=== PATIENT | male | born 1945 | race Caucasian/White ===

== ENCOUNTER 2019-04-25 17:30 | Inpatient (IN) ==
--- NOTE | 2019-04-25 19:51 | Emergency Department Note ---
Disposition Clinical Impression: Generalized weakness, Frequent falls Disposition: Admitted As Inpatient Condition: Good Time of Disposition: 21:50 General Adult HPI - General Chief complaint: ED Fall Stated complaint: falls x3 since Thursday Time Seen by Provider: 04/25/19 17:55 Source: patient, family (), EMS Mode of arrival: EMS Limitations: no limitations Nursing Notes Reviewed: Yes Vital Signs Reviewed: Yes - History of Present Illness HPI Narrative: 74-year-old male history of ankylosing spondylosis, recent CVA, liver cirrhosis presents emergency department via EMS for frequent falls. His is at bedside to provide additional history. Since Thursday approximately 2 days ago patient has fallen 3 times. He has been gradually more weak even when using his walker. Most recently he fell falling backwards striking the back of his head with abrasion. No report of loss of consciousness. This occurred today. They attempted to be evaluated at the [facility] but was told to come here for further evaluation. Symptoms have gotten worse in terms of his hemorrhagic stroke in September. He was transferred to [facility] for further treatment. The patient reports improvement of his strength when he has therapy but they have not had any since. The reports in the past when he has fallen they have noticed he has had increase in swelling of his legs. He was recently diagnosed and treated for cellulitis of his feet. No history of cardiac ischemic disease or heart f ailure. He denies any other complaints such as chest pain, shortness of breath, fever, nausea or vomiting. The reports he has had a productive cough and congestion as well as change in urine without odor. She reportedly has a history of urinary tract infections. He does not take any anticoagulants. Pain Scale: 0 - Related Data Home Medications Medication Instructions Recorded Confirmed Calcium Carbonate 650 mg PO DAILY 07/28/16 04/25/19 DiphenhydraMINE [Benadryl] 2 cap PO HS 07/28/16 04/25/19 Ergocalciferol (VITAMIN D2) 3 tab PO DAILY 07/28/16 04/25/19 [Vitamin D] Omeprazole [PriLOSEC] 20 mg PO DAILY 07/28/16 04/25/19 Oxycodone HCl 5 g PO QID PRN 07/28/16 05/19/17 Polyethylene Glycol 3350 [MiraLAX] 17 gm PO DAILY 07/28/16 04/21/17 Cyclobenzaprine HCl 10 mg PO DAILY 04/21/17 04/25/19 FentaNYL PATCH [Duragesic] 12 mcg TD Q48H 04/21/17 04/25/19 amLODIPine [Norvasc] 5 mg PO DAILY 04/21/17 04/25/19 Amlodipine Besylate 5 mg PO DAILY 04/25/19 04/25/19 Allergies Allergy/AdvReac Type Severity Reaction Status Date / Time diazepam [From Valium] Allergy Unknown Unknown Verified 04/25/19 22:38 latex Allergy Unknown Unknown Verified 04/25/19 22:38 methadone [Methadone] Allergy Unknown Unknown Verified 04/25/19 22:38 morphine Allergy Unknown Itching Verified 04/25/19 22:38 All systems ED: reviewed and negative except as stated. Review of Systems: As Per HPI Constitutional: Reports: weakness. Denies: fever, chills ENT ED: Reports: congestion Cardiovascular: Denies: chest pain Respiratory: Reports: cough. Denies: dyspnea Gastrointestinal: Denies: abdominal pain, nausea, vomiting Genitourinary: Denies: urgency, dysuria, frequency Musculoskeletal: Reports: back pain (Chronic), neck pain Integumentary: Denies: rash, abrasion Neurological: Reports: headache, weakness. Denies: numbness, confusion Past Medical History - Past Medical History Attestation: Yes The following information was validated with the patient. Source: patient Medical history: Reports: cirrhosis, dementia, GERD Psychiatric history: Reports: no psych history - Social History Smoking Status: Unknown if ever smoked Smokeless Tobacco Status: No Alcohol use: Reports: heavy Drug use: Reports: none Physical Exam - General Limitations: no limitations General appearance: alert, in no apparent distress - Head Head exam: other (Abrasion to the crown of the head) - Eye Eye exam: Present: normal appearance, PERRL, EOMI - ENT ENT exam: normal exam, normal oropharynx, mucous membranes moist - Neck Neck exam: Present: normal inspection, trachea midline, other (Stiffness to the neck with limited range of motion). Absent: tenderness, meningismus - Chest Chest inspection: Present: normal inspection, symmetric chest wall rise. Absent: tenderness - Respiratory Respiratory exam: Present: normal lung sounds bilaterally. Absent: respiratory distress, wheezes - Cardiovascular Cardiovascular exam: Present: regular rate, normal rhythm, normal heart sounds. Absent: systolic murmur - Abdominal Exam Abdominal exam: Present: soft, Non-Tender, normal bowel sounds. Absent: tenderness, distention, guarding, rebound, rigidity - Extremities Exam Extremities exam: Present: normal inspection, full ROM, pedal edema (+2 bilateral). Absent: tenderness - Expanded Upper Extremity Exam Shoulder exam: Present: normal inspection, full ROM Arm exam: Present: normal inspection, full ROM Elbow exam: Present: normal inspection, full ROM Forearm/Wrist exam: Present: normal inspection, full ROM Hand exam: Present: normal inspection, full ROM Vascular exam: Normal: capillary refill, radial pulse - Expanded Lower Extremity Exam Hip/Pelvis exam: Present: normal inspection, full ROM, pelvis stable. Absent: shortening Upper leg exam: Present: normal inspection, full ROM Knee exam: Present: normal inspection, full ROM Lower leg exam: Present: normal inspection, full ROM Ankle exam: Present: normal inspection, full ROM Foot/toe exam: Present: normal inspection, full ROM Neurovascular/Tendon exam: Absent: motor deficit, sensory deficit, tendon deficit - Back Exam Back exam: Present: other (No back tenderness, loss of normal curvature of the back) - Neurological Exam Neurological exam: Present: alert, oriented X3 - Psychiatric Psychiatric exam: Present: normal affect, normal mood - Skin Skin exam: Present: warm, dry, intact, normal color. Absent: rash, cyanosis, diaphoresis Course Course Narrative: Patient presents with reports of more frequent falls over the past 3 days. He has had a increased in frequency after his stroke. He has generalized weakness that has progressively worse. No sick contacts or fevers. No complaints at this time other than a slight headache. He has a contusion abrasion to the back of his head. No neck tenderness but he has stiffness which is his baseline. He moves all for extremities without difficulty. There is some slight pitting edema. At this time basic labs including a CT scan of the head and neck. reports change in urinating concern for urinary tract infections. Urinalysis will be performed. Given the patient's history of frequent falls in difficulty and caring for him at home patient may require inpatient admission for possible rehab placement. - Reevaluation(s) Reevaluation #1: Review of his labs shows leukopenia and stable chronic anemia. No other signif icant lab abnormalities. Troponin less than 0.03. Chest x-ray and images unremarkable for any acute abnormalities such as stroke. Urinalysis is not consistent with infection. Patient continues to be too weak to get up and ambulate. Will plan for admission for his generalized weakness and frequent falls. Family is in agreement with this plan. We discussed code status and he is full code at this time. - Consultations Consultation #1: Spoke with on-call hospitalist Dr. Nguyễn, diandra to admit for generalized weakness and frequent falls. No further orders at this time Time: 21:44 Vital Signs Temperature 98.2 F 04/25/19 17:32 Pulse Rate 58 04/25/19 17:32 Respiratory Rate 13 04/25/19 17:32 Blood Pressure 160/71 04/25/19 17:32 O2 Sat by Pulse Oximetry 97 04/25/19 17:32 Temperature 98.2 F 04/25/19 17:32 Pulse Rate 58 04/25/19 17:32 Respiratory Rate 13 04/25/19 17:32 Blood Pressure 160/71 04/25/19 17:32 O2 Sat by Pulse Oximetry 97 04/25/19 17:32 Oxygen Delivery Oxygen Delivery Room Air Medical Decision Making - MDM Narrative Medical decision making narrative: Patient was discussed with my attending physician who agrees with ED management and final disposition. They independently evaluated the patient. Please refer to their attestation to this encounter for additional information. This note was generated by [email or web address] voice recognition software and as a result grammatical or spelling errors may occur using this program. - Medical Records Medical records reviewed: Yes I reviewed the patient's medical records. - Lab Data Lab results reviewed: Yes I reviewed the patient's lab results. Result diagrams: 04/26/19 04:17 04/26/19 04:17 Lab Results 04/25/19 04/25/19 04/25/19 Range/Units 19:49 20:03 20:03 WBC 2.3 L (4.3-11.1) K/mcL RBC 3.79 L (4.19-5.50) M/mcL Hgb 12.7 L (12.9-16.9) g/dL Hct 36.5 L (37.5-50.1) % MCV 96.3 (83.0-100.0) fL MCH 33.5 H (28.0-33.3) pg MCHC 34.8 (31.6-35.5) g/dL RDW 13.3 (11.5-14.5) % Plt Count 64 L (140-400) K/mcL MPV 10.2 (9.4-12.4) fL Immature Gran % 0.0 (0-4) % Seg Neutrophils % 61.6 % Lymphocytes % 30.0 % Monocytes % 6.2 % Eosinophils % 1.8 % Basophils % 0.4 % Neutrophils # 1.4 L (1.6-8.9) K/mcL Lymphocytes # 0.7 (0.6-4.6) K/mcL Monocytes # 0.1 (0.0-1.3) K/mcL Eosinophils # 0.0 (0.0-0.6) K/mcL Basophils # 0.0 (0.0-0.2) K/mcL Sodium 140 (136-145) mEq/L Potassium 3.6 (3.5-5.1) mEq/L Chloride 108 H (98-107) mEq/L Carbon Dioxide 26 (23-29) mEq/L BUN 8 (8-23) mg/dL Creatinine 0.66 L (0.70-1.30) mg/dL Est GFR ( Amer) > 60 (> 60) Est GFR (Non-Af Amer) > 60 (> 60) BUN/Creatinine Ratio 12 (6-26) Glucose 75 (70-105) mg/dL Calculated Osmolality 287 (280-300) Calcium 8.6 (8.6-10.3) mg/dL Troponin I < 0.03 (< 0.04) ng/mL Urine Color Dark Yellow (Yellow) Urine Clarity Clear (Clear) Urine pH 7.5 (5.0-8.0) pH Units Ur Specific [place] 1.019 (1.010-1.025) Urine Protein Negative (Neg-Trace) mg/dL Urine Glucose (UA) Normal (Normal) mg/dL Urine Ketones Negative (Negative) mg/dL Urine Blood Negative (Negative) Urine Nitrite Negative (Negative) Urine Bilirubin Small H (Negative) Urine Urobilinogen 4.0 H (Normal) mg/dL Ur Leukocyte Esterase Negative (Negative) Ur Culture Indicated? NO (NO) - Radiology Data Radiology results reviewed: Yes I reviewed the patient's radiology results. Cervical Spine CT 04/25/19 18:23 IMPRESSION: Extensive cervical fusion which causes artifact limiting evaluation. No gross evidence of acute findings. D/ / 04/25/2019 19:40:07 Juice Graff MD / [place] Interpreting Provider: Juice Graff MD Chest X-Ray 04/25/19 18:23 IMPRESSION: No acute process. D/ / Anatoliy Caraballo MD / Anatoliy Caraballo MD Interpreting Provider: Anatoliy Caraballo MD Head CT 04/25/19 18:23 IMPRESSION: No acute intracranial abnormality. D/ / Anatoliy Caraballo MD / Anatoliy Caraballo MD Interpreting Provider: Anatoliy Caraballo MD - EKG Data EKG #1 EKG attestation: Yes I reviewed and interpreted this EKG. EKG results narrative: EKG performed 1736 normal sinus rhythm 56 beats per minute, normal axis, good R wave progression, no ST elevation or depression, no delta waves, no Brugada pattern. Intervals within normal limits. Compared to prior EKG performed 07/23/2000. No acute ischemic changes. Attestation Statement - Attestation Attestation: I, Lopez Tolentino, examined this patient and my medical decision-making was reviewed with the HOME SPECIALIST/PA/Advanced Practice Nurse/Resident Physician. I agree with the documented findings, disposition and treatment plan as described except to the extent set forth below. 74-year-old male presents emergency Department with concerns of increasing weakness. Family states he has had multiple falls over the past week. Patient has a history weakness however it has worsened per the family. Patient denies chest pain, shortness of breath, palpitations, syncope. Patient is a poor historian and is unable to give adequate history regarding his case and presentation. Family reports a history of hemorrhagic CVA within the past few years. No acute neurologic deficits noted by the family. No change in diet. Laboratory evaluation shows PATSY. Patient will be admitted to the hospitalist for further care and evaluation.
[2019-04-25 20:00] LABS: Bilirubin,Urine Small (Negative); Blood,Urine Negative (Negative); Clarity,Urine Clear (Clear); Color,Urine Dark Yellow (Yellow); Glucose,Urine (UA) Normal (Normal); Ketones,Urine Negative (Negative); Leukocyte Esterase,Urine Negative (Negative); Nitrite,Urine Negative (Negative); PH,Urine 7.5 pH Units (5.0-8.0); Protein,Urine Negative (Neg-Trace); Specific Gravity,Urine 1.019 (1.010-1.025)
[2019-04-25 20:39] LABS: White Blood Count 2.3 K/mcL (4.3-11.1)
[2019-04-25 20:40] LABS: Basophils % 0.4 %; Eosinophils % 1.8 %; Hematocrit 36.5 % (37.5-50.1); Hemoglobin 12.7 g/dL (12.9-16.9); Lymphocytes # 0.7 K/mcL (0.6-4.6); Mean Corpuscular HGB Conc 34.8 g/dL (31.6-35.5); Mean Corpuscular Hemoglobin 33.5 pg (28.0-33.3); Mean Corpuscular Volume 96.3 fL (83.0-100.0); Mean Platelet Volume 10.2 fL (9.4-12.4); Monocytes # 0.1 K/mcL (0.0-1.3); Monocytes % 6.2 %; Neutrophils # 1.4 K/mcL (1.6-8.9); Red Blood Count 3.79 M/mcL (4.19-5.50); Red Cell Distribution Width 13.3 % (11.5-14.5); Segmented Neutrophils % 61.6 %
[2019-04-25 20:41] LABS: Platelet Count 64 K/mcL (140-400)
[2019-04-25 21:03] LABS: BUN/Creatinine Ratio 12 (6-26); Blood Urea Nitrogen 8 mg/dL (8-23); Calcium 8.6 mg/dL (8.6-10.3); Carbon Dioxide 26 mEq/L (23-29); Chloride 108 mEq/L (98-107); Glucose 75 mg/dL (70-105); Osmolality,Calculated 287 (280-300); Potassium 3.6 mEq/L (3.5-5.1); Sodium 140 mEq/L (136-145); Troponin I < 0.03 ng/mL (< 0.04); eGFR For African Americans > 60 (> 60); eGFR For Non-African Americans > 60 (> 60)
[2019-04-25 22:31] LABS: Albumin 3.4 g/dL (3.5-5.7); Albumin/Globulin Ratio 1.2 (1.1-2.2); Bilirubin,Direct 0.7 mg/dL (0.0-0.2); Bilirubin,Indirect 3.3 mg/dL (0.0-1.2); Globulin 2.9 g/dL (2.4-3.5); Total Protein 6.3 g/dL (6.4-8.9)
[2019-04-26] MEDS ORDERED: Naloxone 0.4 MG/ML INJ IVP PRN (02:10)
--- NOTE | 2019-04-26 02:48 | Internal Med History&Physical ---
Date of Encounter: 04/26/19 Time of Encounter: 01:00 Internal Medicine - H&P: HPI Chief complaint: Frequent Falls Admitted From: Home Plans for Post Hospital Care: Home History of present illness: Mr. Puente is a 74 year old male with past medical history significant for hypertension, hemorrhagic stroke, ankylosing spondylosis, cervical fusion, rheumatoid arthritis, dementia, and gerd who presents from home due to frequent falls. Per patients he had a hemorrhagic stroke in September 2018 and has progressive weakness, slurred speech, and frequent falls since. Reports he was seen at in [place], [place] but has not had any neurological followup. Receives majority of his care through the [facility] and they have recently been working on setting up follow up with neurology. She reports patient lives at home with her and is becoming more dependent on her for care. Patient denies any injury from his falls besides his chronic neck and back pain. Denies striking head or loosing consciousness. ER obtained CT of the head which showed no acute intracranial abnormality and CT of the cervical spine which showed extensive cervical fusion which causes artifact limiting evaluation otherwise no gross evidence of acute findings. Chest xray was also obtained which showed no acute process. ER reported EKG as sinus rhythm with no acute ishcemic changes when compared to prior EKG 07/23/2000. Patient currently denies any headache, chest pain, shortness of breath, abdominal pain, bowel or bladder changes. Patient follows regularly with [facility] for primary care, rheumatology, hematology, and liver specialist. Past Med Surg Social Fam HX - Past Medical History Medical history: cirrhosis, dementia, GERD, hypertension, RA, other Additional medical history: spinal stenosis, chronic back pain, cirrhosis, dementia, ankylosing spondylosis, hemorrhagic stroke Psychiatric history: no psych history - Past Surgical History Surgical History: cholecystectomy, orthopedic, other Additional surgical history: back surgery - Social History Smoking Status: Former smoker Smokeless Tobacco Status: No Alcohol use: none Drug use: none - Family History Mother Living Status: Hx Family GI Disorders: Yes (cirrhosis) Father Living Status: Hx Family Genitourinary Disorders: Yes (CKD) Internal Medicine - H&P: Meds Calcium Carbonate 650 mg PO DAILY 07/28/16 [History] DiphenhydraMINE [Benadryl] 2 cap PO HS 07/28/16 [History] Ergocalciferol (VITAMIN D2) [Vitamin D] 3 tab PO DAILY 07/28/16 [History] Omeprazole [PriLOSEC] 20 mg PO DAILY 07/28/16 [History] Oxycodone HCl 5 g PO QID PRN 07/28/16 [History] Polyethylene Glycol 3350 [MiraLAX] 17 gm PO DAILY 07/28/16 [History] Cyclobenzaprine HCl 10 mg PO DAILY 04/21/17 [History] FentaNYL PATCH [Duragesic] 12 mcg TD Q48H 04/21/17 [History] amLODIPine [Norvasc] 5 mg PO DAILY 04/21/17 [History] Amlodipine Besylate 5 mg PO DAILY 04/25/19 [History] Allergy/AdvReac Type Severity Reaction Status Date / Time diazepam [From Valium] Allergy Unknown Unknown Verified 04/25/19 22:38 latex Allergy Unknown Unknown Verified 04/25/19 22:38 methadone [Methadone] Allergy Unknown Unknown Verified 04/25/19 22:38 morphine Allergy Unknown Itching Verified 04/25/19 22:38 All Systems PM: A 10-system review of systems was performed and is negative for pertinent findings except as documented above in the HPI. - Constitutional Vitals: Temp Pulse Resp BP Pulse Ox 98.2 F 67 16 187/85 98 04/25/19 23:07 04/25/19 23:07 04/25/19 23:07 04/25/19 23:07 04/25/19 23:07 Exam: General: Alert and oriented to person, place, and time. reports intermittent confusion related to his dementia. Skin:Slightly jaundice, no rash, no lesions. HEENT:Pupils equal, round and reactive. Cardiovascular:Normal S1 & S2, no rubs, murmurs or gallops. No JVD. Pulse regular. Lungs:Breath sounds decreased, no wheezes or crackles. Abdomen:Soft, non-tender, no rigidity. Extremities:No deformity, no edema or tenderness, no joint swelling or clubbing. Neurological:Normal cognition and motor skills. Pulses:Carotid and radial pulses normal +2. Rest of the physical exam is non contributory. Internal Med - H&P Results - Labs CBC & Chem 7: 04/26/19 04:17 04/26/19 04:17 Labs: Short CBC 04/25/19 Range/Units 20:03 WBC 2.3 L (4.3-11.1) K/mcL Hgb 12.7 L (12.9-16.9) g/dL Hct 36.5 L (37.5-50.1) % Plt Count 64 L (140-400) K/mcL Neutrophils # 1.4 L (1.6-8.9) K/mcL BMP 04/25/19 20:03 Sodium 140 Potassium 3.6 Chloride 108 H Carbon Dioxide 26 BUN 8 Creatinine 0.66 L Glucose 75 Calcium 8.6 Cardiac Enzymes 04/25/19 Range/Units 20:03 Troponin I < 0.03 (< 0.04) ng/mL Liver Function 04/25/19 Range/Units 21:48 Total Bilirubin 4.0 H (0.3-1.0) mg/dL Direct Bilirubin 0.7 H (0.0-0.2) mg/dL AST 31 (13-39) Units/L ALT 25 (7-52) Units/L Alkaline Phosphatase 107 H (34-104) Units/L Albumin 3.4 L (3.5-5.7) g/dL Urine 04/25/19 Range/Units 19:49 Urine Color Dark Yellow (Yellow) Urine Clarity Clear (Clear) Urine pH 7.5 (5.0-8.0) pH Units Ur Specific [place] 1.019 (1.010-1.025) Urine Protein Negative (Neg-Trace) mg/dL Urine Glucose (UA) Normal (Normal) mg/dL - Impressions ITS Impressions Cervical Spine CT 04/25/19 18:23 IMPRESSION: Extensive cervical fusion which causes artifact limiting evaluation. No gross evidence of acute findings. D/ / 04/25/2019 19:40:07 Juice Graff MD / [place] Interpreting Provider: Juice Graff MD Chest X-Ray 04/25/19 18:23 IMPRESSION: No acute process. D/ / Anatoliy Caraballo MD / Anatoliy Caraballo MD Interpreting Provider: Anatoliy Caraballo MD Head CT 04/25/19 18:23 IMPRESSION: No acute intracranial abnormality. D/ / Anatoliy Caraballo MD / Anatoliy Caraballo MD Interpreting Provider: Anatoliy Caraballo MD - Assessment and Plan (1) Frequent falls Current Visit: Yes Status: Chronic Assessment and plan: Reports frequent falls since September 2018 following hemorrhagic stroke. Denies any injury. Head and neck CT without any acute abnormality. Fall precautions ordered. PT OT ordered. [facility], Neurology consult ordered for recommendations if any, will need called in a.m.. Social work consult ordered for discharge needs. (2) Generalized weakness Current Visit: Yes Status: Chronic Assessment and plan: Plan as stated above. (3) Slurred speech Current Visit: Yes Status: Chronic Assessment and plan: Reports slurred speech following hemorrhagic stroke in September 2018. Denies any previous evaluation with speech therapy. ST consult ordered. (4) Low hemoglobin Current Visit: Yes Status: Acute Assessment and plan: Slightly decreased at 12.7 Repeat labs ordered. (5) Pancytopenia Current Visit: Yes Status: Chronic Assessment and plan: Previously followed with [facility]. Repeat labs ordered. (6) Elevated bilirubin Current Visit: Yes Status: Chronic Assessment and plan: Bilirubin elevated with known history of liver cirrhosis. AST and ALT within normal limits. Repeat labs ordered including PT INR. Continue follow up with liver specialist at [facility]. (7) Ankylosing spondylitis Current Visit: Yes Status: Chronic Assessment and plan: Continue rheumatology follow up. Qualifiers: Ankylosing spondylitis location: unspecified site of spine Qualified Code(s): M45.9 - Ankylosing spondylitis of unspecified sites in spine - Time Spent With Patient Total time spent is greater than 50% in coordination of care (as documented) at patient's floor/unit and/or counseling patient:
[2019-04-26] MEDS: *HR* FentaNYL PATCH 12 MCG PATCH TD SCH (04:37)
[2019-04-26 05:25] LABS: Hemoglobin 12.2 g/dL (12.9-16.9); Immature Granulocytes % 0.4 % (0-4); Mean Corpuscular Volume 96.2 fL (83.0-100.0)
[2019-04-26 05:27] LABS: Basophils % 0.8 %; Eosinophils # 0.1 K/mcL (0.0-0.6); Eosinophils % 2.9 %; Immature Platelets 2.3 % (1.1-6.1); Lymphocytes # 0.8 K/mcL (0.6-4.6); Lymphocytes % 31.8 %; Mean Corpuscular HGB Conc 34.9 g/dL (31.6-35.5); Mean Corpuscular Hemoglobin 33.5 pg (28.0-33.3); Monocytes # 0.2 K/mcL (0.0-1.3); Neutrophils # 1.4 K/mcL (1.6-8.9); Red Blood Count 3.64 M/mcL (4.19-5.50); Segmented Neutrophils % 57.1 %; White Blood Count 2.4 K/mcL (4.3-11.1)
[2019-04-26 05:29] LABS: Platelet Count 61 K/mcL (140-400)
[2019-04-26 05:44] LABS: Alanine Aminotransferase 23 Units/L (7-52); Albumin 3.2 g/dL (3.5-5.7); Albumin/Globulin Ratio 1.1 (1.1-2.2); Alkaline Phosphatase 88 Units/L (34-104); Aspartate Amino Transferase 29 Units/L (13-39); BUN/Creatinine Ratio 10 (6-26); Bilirubin,Direct 0.6 mg/dL (0.0-0.2); Bilirubin,Indirect 3.1 mg/dL (0.0-1.2); Bilirubin,Total 3.7 mg/dL (0.3-1.0); Blood Urea Nitrogen 7 mg/dL (8-23); Calcium 8.4 mg/dL (8.6-10.3); Carbon Dioxide 26 mEq/L (23-29); Chloride 108 mEq/L (98-107); Glucose 80 mg/dL (70-105); Osmolality,Calculated 285 (280-300); Potassium 3.4 mEq/L (3.5-5.1); Sodium 139 mEq/L (136-145); Total Protein 6.2 g/dL (6.4-8.9); eGFR For African Americans > 60 (> 60); eGFR For Non-African Americans > 60 (> 60)
[2019-04-26 08:01] LABS: INR 1.3; Prothrombin Time 15.2 Seconds (9.4-12.1)
[2019-04-26] MEDS: Cholecalciferol (D-3) 1,000 UNIT TABLET PO SCH (09:08)
[2019-04-26] MEDS: amLODIPine 5 MG TABLET PO SCH (09:08)
--- NOTE | 2019-04-26 10:16 | Neurology - Consult Note ---
<Bon Yeung - Last Filed: 04/26/19 13:08> Date of Encounter: 04/26/19 Time of Encounter: 10:03 Assessment and Plan (1) History of hemorrhagic cerebrovascular accident (CVA) with residual deficit Current Visit: Yes Status: Chronic History of hemorrhagic CVA in September 2018 with residual deficits Originaly recieved PT/OT and was doing well at home, ambulating with walker Presented this admission due to worsening of pre-existing deficits resulting in frequent falls No complaint of or evidence of new focal deficits CT head/neck on admission negative for acute abnormality Labs negative for acute abnormality Physical exam demonstrating chronic slurred speech, right sensory deficit, bilateral LE motor deficit Chronic residual focal deficits with worsening bilateral LE weakness No indication of new infarct, focal deficits are unchanged Differential for LE weakness includes deconditioning, Lumbar spinal stenosis, metabolic derangement Patient does have pre-existing lumbar ankylosing spondylitis with spinal stenosis Agree with PT/OT, also ordering MRI brain and MRI lumbar spine, B12 and TSH Will continue to follow (2) Frequent falls Current Visit: Yes Status: Chronic (3) Generalized weakness Current Visit: Yes Status: Chronic (4) Ankylosing spondylitis Current Visit: Yes Status: Chronic Previous MRI lumbar spine in February 2018 demonstrating ankylosing spondylitis and stenosis, worst at L1-L2 Repeat lumbar spine MRI ordered and pending Qualifiers: Ankylosing spondylitis location: lumbar region Qualified Code(s): M45.6 - Ankylosing spondylitis lumbar region (5) Slurred speech Current Visit: Yes Status: Chronic Speech therapy consulted by hospitalist History of Present Illness Chief complaint: falls HPI: Mr. Puente is a 74 year old male with a past medical history of hypertension, cervical fusion, rheumatoid arthritis, dementia, GERD, and hemorrhagic stroke in September 2018. She was brought to the emergency department by his who complains of the patient having progressively worsening weakness, slurred s peech, falls since his stroke. Immediately after the stroke the patient had evaluation at [place] and had physical therapy but since leaving has not had any outpatient treatment. Prior to the stroke he was apparently functional and now is having multiple falls. On admission basic labs and imaging were performed. Urinalysis, labs, CT head, CT of the neck, chest x-ray were all without acute abnormality. Most of the history was obtained from the on admission. On my evaluation the was not present, and the patient had difficulty giving an accurate history. He did tell me that prior to his stroke he was functional but was not able to give me specifics. He does report that he ambulates with a walker at home and does fall but is usually able to get back up and does not seem as concerned with his functional status and claims that his is more concerned. Past Med Surg Social Fam HX - Past Medical History Medical history: cirrhosis, dementia, GERD, hypertension, RA, other Additional medical history: spinal stenosis, chronic back pain, cirrhosis, dementia, ankylosing spondylosis, hemorrhagic stroke Psychiatric history: no psych history - Past Surgical History Surgical History: cholecystectomy, orthopedic, other Additional surgical history: back surgery - Social History Smoking Status: Former smoker Smokeless Tobacco Status: No Alcohol use: none Drug use: none - Family History Mother Living Status: Hx Family GI Disorders: Yes (cirrhosis) Father Living Status: Hx Family Genitourinary Disorders: Yes (CKD) Medications and Allergies Calcium Carbonate 650 mg PO DAILY 07/28/16 [History] DiphenhydraMINE [Benadryl] 2 cap PO HS 07/28/16 [History] Ergocalciferol (VITAMIN D2) [Vitamin D] 3 tab PO DAILY 07/28/16 [History] Omeprazole [PriLOSEC] 20 mg PO DAILY 07/28/16 [History] Oxycodone HCl 5 g PO QID PRN 07/28/16 [History] Polyethylene Glycol 3350 [MiraLAX] 17 gm PO DAILY 07/28/16 [History] Cyclobenzaprine HCl 10 mg PO DAILY 04/21/17 [History] FentaNYL PATCH [Duragesic] 12 mcg TD Q48H 04/21/17 [History] amLODIPine [Norvasc] 5 mg PO DAILY 04/21/17 [History] Amlodipine Besylate 5 mg PO DAILY 04/25/19 [History] Allergy/AdvReac Type Severity Reaction Status Date / Time diazepam [From Valium] Allergy Unknown Unknown Verified 04/25/19 22:38 latex Allergy Unknown Unknown Verified 04/25/19 22:38 methadone [Methadone] Allergy Unknown Unknown Verified 04/25/19 22:38 morphine Allergy Unknown Itching Verified 04/25/19 22:38 All Systems: The remainder of the systems were reviewed and are negative Physical Examination - Vital Signs Vital Signs: Initial Vital Signs Temp Pulse Resp BP Pulse Ox 98.2 F 58 13 160/71 97 04/25/19 17:32 04/25/19 17:32 04/25/19 17:32 04/25/19 17:32 04/25/19 17:32 - Exam Exam: Patient is alert and oriented 3. Cranial nerves III through VII are intact, cranial nerves IX through XII are intact, vision and auditory senses were not quantified but are intact. Cerebellar function is intact but delayed. Upper motor strength is 4/5 in bilateral deltoids, 5/5 in bilateral biceps, 5/5 in bilateral triceps, 3/5 in bilateral iliopsoas, 5/5 in bilateral tibialis anterior. Hamstring and vastus strength was not tested as the patient is unstable to sit on the edge of the bed. Light touch sensation is intact but diminished on the right face, upper extremity, lower extremity. Light touch sensation is intact on the left face, upper extremity, lower extremity. Deep tendon reflexes are 2/4 in bilateral brachioradialis and triceps tendons. Patellar tendon and Achilles tendon deep tendon reflexes were not tested due to patient's inability to sit at the edge of the bed. - Constitutional General appearance: comfortable Results - Laboratory Findings CBC and BMP: 04/26/19 04:17 04/26/19 04:17 Abnormal lab findings: Abnormal lab results WBC 2.4 K/mcL (4.3-11.1) L 04/26/19 04:17 RBC 3.64 M/mcL (4.19-5.50) L 04/26/19 04:17 Hgb 12.2 g/dL (12.9-16.9) L 04/26/19 04:17 Hct 35.0 % (37.5-50.1) L 04/26/19 04:17 MCH 33.5 pg (28.0-33.3) H 04/26/19 04:17 Plt Count 61 K/mcL (140-400) L 04/26/19 04:17 1.4 K/mcL (1.6-8.9) L 04/26/19 04:17 PT 15.2 Seconds (9.4-12.1) H 04/26/19 07:25 Potassium 3.4 mEq/L (3.5-5.1) L 04/26/19 04:17 Chloride 108 mEq/L (98-107) H 04/26/19 04:17 BUN 7 mg/dL (8-23) L 04/26/19 04:17 0.66 mg/dL (0.70-1.30) L 04/25/19 20:03 Calcium 8.4 mg/dL (8.6-10.3) L 04/26/19 04:17 3.7 mg/dL (0.3-1.0) H 04/26/19 04:17 0.6 mg/dL (0.0-0.2) H 04/26/19 04:17 3.1 mg/dL (0.0-1.2) H 04/26/19 04:17 107 Units/L (34-104) H 04/25/19 21:48 6.2 g/dL (6.4-8.9) L 04/26/19 04:17 3.2 g/dL (3.5-5.7) L 04/26/19 04:17 Small (Negative) H 04/25/19 19:49 4.0 mg/dL (Normal) H 04/25/19 19:49 Consult Discharge Plan - Plan [facility]errals: [facility] Care Provider[facility] - <Ted Soto I - Last Filed: 04/26/19 17:03> Date of Encounter: 04/26/19 Assessment and Plan (1) History of hemorrhagic cerebrovascular accident (CVA) with residual deficit Current Visit: Yes Status: Chronic Pt was seen and examined, my medical decision was reviewed with the Resident Physician, I agree with the documented findings, disposition and treatment plan, as described except to the extent set forth below. This patient who apparently had an history of hemorrhagic stroke in the past with significant residual deficit. Admitted with frequent fall generalized weakness predominantly weakness of lower extremities On neurological examination Patient noted to have features seems to be consistent with parkinsonism, but at the same time he did have significant residual deficit from his previous stroke And on the top of that suspect significant lumbar stenosis considering weakness of his both lower extremities particularly at hip flexion and extension bilaterally. At this time I would recommend complete workup including MRI of the brain as well as the lumbar spine and also check for other metabolic abnormalities that may be causing or contributing to his symptoms. At the same time suggest low-dose of Sinemet as a trial to see if is any improvement in his stiffness and ambulation Patient would benefit from short-term rehabilitation Ted Soto MD History of Present Illness HPI: Mr. Puente is a 74 year old male All Systems: The remainder of the systems were reviewed and are negative Physical Examination - Vital Signs Vital Signs: Initial Vital Signs Temp Pulse Resp BP Pulse Ox 98.2 F 58 13 160/71 97 04/25/19 17:32 04/25/19 17:32 04/25/19 17:32 04/25/19 17:32 04/25/19 17:32 - Exam Exam: On neurological examination patient is alert awake and oriented, he did have a decreased facial expressions masked faces. Cranial nerves are intact, increased tone all over, mild cogwheeling decreased fine motor movements though strength in the upper extremities is 4/4. And lower extremities he is 3+ bilaterally at hip flexion knee extension. Se nsory examination is inconsistent decreased reflexes all over Results - Laboratory Findings CBC and BMP: 04/26/19 04:17 04/26/19 04:17 Abnormal lab findings: Abnormal lab results WBC 2.4 K/mcL (4.3-11.1) L 04/26/19 04:17 RBC 3.64 M/mcL (4.19-5.50) L 04/26/19 04:17 Hgb 12.2 g/dL (12.9-16.9) L 04/26/19 04:17 Hct 35.0 % (37.5-50.1) L 04/26/19 04:17 MCH 33.5 pg (28.0-33.3) H 04/26/19 04:17 Plt Count 61 K/mcL (140-400) L 04/26/19 04:17 1.4 K/mcL (1.6-8.9) L 04/26/19 04:17 PT 15.2 Seconds (9.4-12.1) H 04/26/19 07:25 Potassium 3.4 mEq/L (3.5-5.1) L 04/26/19 04:17 Chloride 108 mEq/L (98-107) H 04/26/19 04:17 BUN 7 mg/dL (8-23) L 04/26/19 04:17 0.66 mg/dL (0.70-1.30) L 04/25/19 20:03 Calcium 8.4 mg/dL (8.6-10.3) L 04/26/19 04:17 3.7 mg/dL (0.3-1.0) H 04/26/19 04:17 0.6 mg/dL (0.0-0.2) H 04/26/19 04:17 3.1 mg/dL (0.0-1.2) H 04/26/19 04:17 107 Units/L (34-104) H 04/25/19 21:48 6.2 g/dL (6.4-8.9) L 04/26/19 04:17 3.2 g/dL (3.5-5.7) L 04/26/19 04:17 Vitamin B12 1371 pg/mL (250-1100) H 04/26/19 12:04 Small (Negative) H 04/25/19 19:49 4.0 mg/dL (Normal) H 04/25/19 19:49
--- NOTE | 2019-04-26 13:45 | Internal Med Progress Note ---
Hospitalist Progress Note - Encounter Date of Encounter: 04/26/19 Time of Encounter: 10:45 - Subjective Interval History: Mr. Puente is a 74 year old male with past medical history significant for hypertension, hemorrhagic stroke, ankylosing spondylosis, cervical fusion, rheumatoid arthritis, dementia, and GERD who presented to [place] from home due to frequent falls / ataxic gait. He had a hemorrhagic stroke in September 2018 and has progressive weakness, slurred speech, and frequent falls since. ER obtained CT of the head which showed no acute intracranial abnormality and CT of the cervical spine which showed extensive cervical fusion which causes artifact limiting evaluation otherwise no gross evidence of acute findings. Pt was seen and examined at bedside. He is more alert, awake and O x 3. Does have some resting tremors. He denied any CP / SOB. - Exam Vitals: Temp Pulse Resp BP Pulse Ox 98.2 F 81 16 165/82 97 04/26/19 11:37 04/26/19 11:37 04/26/19 11:37 04/26/19 11:37 04/26/19 11:37 Exam: Gen: Alert, awake, Oriented to time,place and person.. Looks very weak and lethargic Chest: Diminished breath sounds B/L, No wheezing, No crackles, No rales Heart: S1S2+ RRR No murmurs Abd: Soft, NT, BS +, No organomegaly Ext: No edema, pulses are palpable, No calf tenderness Neuro : He does have some ataxic gait. Tremors ++ Skin: No rash. - Assessment and Plan (1) Frequent falls Current Visit: Yes Status: Chronic Assessment and Plan: Reports frequent falls since September 2018 following hemorrhagic stroke. Denies any injury. Head and neck CT without any acute abnormality. Cont fall precautions PT / OT eval - P May need ECF placement Ordered brain MRI to r/o any posterior circulation CVA Also his symptoms were concerning for early parkinson's disease Will talk to Neuro (2) Slurred speech Current Visit: Yes Status: Chronic Assessment and Plan: Reports slurred speech following hemorrhagic stroke in September 2018. Denies any previous evaluation with speech therapy. ST eval - P (3) Generalized weakness Current Visit: Yes Status: Acute Assessment and Plan: Concenring for parkinson's especially with his shuffle and ataxic gait Will talk to Neurology PT / OT eval (4) Elevated bilirubin Current Visit: Yes Status: Chronic Assessment and Plan: Bilirubin elevated with known history of liver cirrhosis. AST and ALT within normal limits. He does have chronically elevated LFT's (5) Ankylosing spondylitis Current Visit: Yes Status: Chronic Assessment and Plan: Continue rheumatology follow up MRI of Lumbar spine ordered (6) Pancytopenia Current Visit: Yes Status: Chronic Assessment and Plan: Due to Cirrhosis of liver f/u with Heme onc as an out pt - Time Spent with Patient Total time spent is greater than 50% in coordination of care (as documented) at patient's floor/unit and/or counseling patient: Internal Medicine: Result - Labs CBC & Chem 7: 04/26/19 04:17 04/26/19 04:17 Labs: Short CBC 04/25/19 04/26/19 Range/Units 20:03 04:17 WBC 2.3 L 2.4 L (4.3-11.1) K/mcL Hgb 12.7 L 12.2 L (12.9-16.9) g/dL Hct 36.5 L 35.0 L (37.5-50.1) % Plt Count 64 L 61 L (140-400) K/mcL Neutrophils # 1.4 L 1.4 L (1.6-8.9) K/mcL BMP 04/25/19 04/26/19 20:03 04:17 Sodium 140 139 Potassium 3.6 3.4 L Chloride 108 H 108 H Carbon Dioxide 26 26 BUN 8 7 L Creatinine 0.66 L 0.70 Glucose 75 80 Calcium 8.6 8.4 L Cardiac Enzymes 04/25/19 Range/Units 20:03 Troponin I < 0.03 (< 0.04) ng/mL Liver Function 04/25/19 04/26/19 Range/Units 21:48 04:17 Total Bilirubin 4.0 H 3.7 H (0.3-1.0) mg/dL Direct Bilirubin 0.7 H 0.6 H (0.0-0.2) mg/dL AST 31 29 (13-39) Units/L ALT 25 23 (7-52) Units/L Alkaline Phosphatase 107 H 88 (34-104) Units/L Albumin 3.4 L 3.2 L (3.5-5.7) g/dL Urine 04/25/19 Range/Units 19:49 Urine Color Dark Yellow (Yellow) Urine Clarity Clear (Clear) Urine pH 7.5 (5.0-8.0) pH Units Ur Specific [place] 1.019 (1.010-1.025) Urine Protein Negative (Neg-Trace) mg/dL Urine Glucose (UA) Normal (Normal) mg/dL - ABG Interpretation ABG results: PT/INR, D-dimer PT 15.2 Seconds (9.4-12.1) H 04/26/19 07:25 - Impressions Impressions Cervical Spine CT 04/25/19 18:23 IMPRESSION: Extensive cervical fusion which causes artifact limiting evaluation. No gross evidence of acute findings. D/ / 04/25/2019 19:40:07 Juice Graff MD / [place] Interpreting Provider: Juice Graff MD Chest X-Ray 04/25/19 18:23 IMPRESSION: No acute process. D/ / Anatoliy Caraballo MD / Anatoliy Caraballo MD Interpreting Provider: Anatoliy Caraballo MD Head CT 04/25/19 18:23 IMPRESSION: No acute intracranial abnormality. D/ / Anatoliy Caraballo MD / Anatoliy Caraballo MD Interpreting Provider: Anatoliy Caraballo MD Consult Discharge Plan - Plan [facility]errals: [facility] [Primary Care Provider] - (5) Ankylosing spondylitis Qualifiers: Ankylosing spondylitis location: lumbar region Qualified Code(s): M45.6 - Ankylosing spondylitis lumbar region
--- NOTE | 2019-04-26 13:57 | Electrocardiograph Report ---
[facility] Test Date: 2019-04-25 Pat Name: Celestine Puente Department: [id number] Room: 3B31 Gender: M Non Morse Intercept Technician: : 1945 Requested By: Bryan Gibson Order Number: [id number] Reading MD: Rod Fairbanks Measurements Intervals [place] Rate: 56 P: 55 [place]: 161 QRS: -2 QRSD: 126 T: 52 QT: 474 QTc: 458 Interpretive Statements Sinus rhythm Nonspecific intraventricular conduction delay Electronically Signed On 04-26-2019 13:56:17 EDT by Rod Fairbanks
[2019-04-26] MEDS ORDERED: *HR* Heparin 5,000 UNIT/ML VIAL SQ SCH (18:00)
[2019-04-26] MEDS: Carbidopa/Levodopa 25/100 TABLET PO SCH ×2 (18:09→22:29)
[2019-04-26] MEDS: *HR* OxyCODONE Immed Rel 15 MG TABLET PO PRN (18:09)
[2019-04-26] MEDS: Aspirin Enteric Coated 81 MG Tablet PO SCH (23:00)
[2019-04-27] MEDS: *HR* OxyCODONE Immed Rel 15 MG TABLET PO PRN ×2 (00:26→19:19)
--- NOTE | 2019-04-27 02:30 | Event Note ---
Date of Encounter: 04/26/19 Time of Encounter: 22:36 Alerted by pts. nurse JOSHUA Bennett that the pt. had been admitted for weakness, frequent falls, and slurred speech. Pt. had CVA in 2007. MRI ordered previously during the day. Pt. was seen by Dr. Soto. MRI showed acute infarct noted in the anterior left cerebellar hemisphere as well as a probable acute infarct along the posterior midline of the maria ines. There are no other areas of restricted diffusion to suggest an acute infarct. The cerebral and cerebellar parenchyma demonstrate volume loss. There are scattered and confluent areas of increased T2 signal noted supratentorially and centrally in the maria ines, compatible with moderate chronic microvascular white matter ischemic disease. There is a chronic lacunar infarct in the right centrum semiovale and bilateral thalami. Numerous scattered areas of blooming artifact are noted in the cerebral hemispheres, compatible with small microhemorrhages, usually related to underlying hypertension. NIHSS and NIHSS modified ordered. Falls precautions and up with assist ordered. Called Dr. Soto camera control operator to discuss these new findings w/recommendation for 81 mg ASA now and daily as well as Plavix 75 mg. Plavix DCd d/t microhemorrhages. Nurse informed of orders and instructed to notify me immediately of any adverse changes or new neurological deficits.
[2019-04-27 04:56] LABS: Red Cell Distribution Width 13.2 % (11.5-14.5)
[2019-04-27 04:58] LABS: Hematocrit 36.2 % (37.5-50.1); Hemoglobin 12.7 g/dL (12.9-16.9); Immature Platelets 2.5 % (1.1-6.1); Mean Corpuscular HGB Conc 35.1 g/dL (31.6-35.5); Mean Platelet Volume 9.5 fL (9.4-12.4); Red Blood Count 3.85 M/mcL (4.19-5.50); White Blood Count 3.3 K/mcL (4.3-11.1)
[2019-04-27 05:17] LABS: Alanine Aminotransferase 9 Units/L (7-52); Albumin 3.2 g/dL (3.5-5.7); Alkaline Phosphatase 106 Units/L (34-104); Aspartate Amino Transferase 27 Units/L (13-39); BUN/Creatinine Ratio 11 (6-26); Bilirubin,Total 3.7 mg/dL (0.3-1.0); Blood Urea Nitrogen 8 mg/dL (8-23); Calcium 8.6 mg/dL (8.6-10.3); Carbon Dioxide 26 mEq/L (23-29); Chloride 104 mEq/L (98-107); Globulin 3.1 g/dL (2.4-3.5); Glucose 78 mg/dL (70-105); Osmolality,Calculated 287 (280-300); Potassium 3.5 mEq/L (3.5-5.1); Sodium 140 mEq/L (136-145); Total Protein 6.3 g/dL (6.4-8.9); eGFR For African Americans > 60 (> 60); eGFR For Non-African Americans > 60 (> 60)
[2019-04-27] MEDS: Carbidopa/Levodopa 25/100 TABLET PO SCH ×3 (08:00→20:07)
[2019-04-27] MEDS: Cholecalciferol (D-3) 1,000 UNIT TABLET PO SCH (08:00)
[2019-04-27] MEDS: Aspirin Enteric Coated 81 MG Tablet PO SCH (08:00)
[2019-04-27] MEDS: amLODIPine 5 MG TABLET PO SCH (08:00)
--- NOTE | 2019-04-27 08:43 | Neurology Progress Note ---
<GamalBon Gomez - Last Filed: 04/27/19 10:16> Date of Encounter: 04/27/19 Time of Encounter: 08:43 Assessment and Plan (1) Acute ischemic stroke Current Visit: Yes Status: Acute MRI overnight demonstrated acute left anterior cerebellar infarct, unlikely responsible for worsened symptoms based on location Patient was resumed on ASA and Plavix overnight, he was not previously on statin due to cirrhosis but will be started on low dose statin per hospitalist No new symptoms or complaints overnight or this morning (2) Ankylosing spondylitis Current Visit: Yes Status: Chronic Lumbar MRI performed yesterday demonstrating multilevel central spinal canal narrowing worst at L1-L2 and L4-L5 Also demonstrated multilevel foraminal narrowing These MRI findings are very likely contributing to his bilateral lower extremity weakness and falls Give his clinical condition he is unlikely a surgical candidate Recommend physical therapy and rehabilitation Qualifiers: Ankylosing spondylitis location: lumbar region Qualified Code(s): M45.6 - Ankylosing spondylitis lumbar region (3) Parkinsonian features Current Visit: Yes Status: Acute Patient demonstrating Parkinsonian features on exam including masked facies, cogwheel rigidity, cognitive bradykinesia MRI brain demonstrating chronic ischemic changes that 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 Low dose sinemet started yesterday, recommend normal dose in 2-3 days Recommend continued Sinemet and observation for improvement in symptoms (4) History of hemorrhagic cerebrovascular accident (CVA) with residual deficit Current Visit: Yes Status: Chronic Hisotory of hemorrhagic stroke September 2018 with residual dysarthria and generalized weakness Patient presented for worsening symptoms, new ischemia found in cerebellum, unlikely related to symptoms based on location Continue medical therapy Subjective Principal diagnosis: Acute Ischemic Stroke Interval history: MRI overnight demonstrated acute left anterior cerebellar infarct. No acute change in symptoms overnight. Patient was also started on low dose Sinemet yesterday. Patient has no acute complaints this morning. Objective - Constitutional Vitals: Temp Pulse Resp BP Pulse Ox 97.9 F 65 14 145/70 97 04/27/19 07:42 04/27/19 07:42 04/27/19 07:42 04/27/19 07:42 04/27/19 07:42 General appearance: Present: A&O X 3 Exam: General Examination: *CONSTITUTIONAL: Alert and oriented x3, no acute distress *GENERAL APPEARANCE OF PATIENT appears healthy and well groomed *EYES: pupils equal, round, reactive to light and accommodation, con junctiva clear without masses or ulcerations, fundi normal. *CARDIOVASCULAR: RRR, S1, S2, no mumurs, rubs, or gallops, no peripheral edema, distal temperature normal, dorsalis pedis pulses normal. Refer to vital signs * MUSCULOSKELETAL: *GAIT AND STATION: not tested due to weakness and fall risk *ASSESSMENT OF MUSCLE STRENGTH IN THE UPPER AND LOWER EXTREMITIES: 4/5 in bilateral deltoids, 5/5 in bilateral biceps, 5/5 in bilateral triceps, 3/5 in bilateral hip flexors, 4/5 in bilateral quadriceps, 4/5 bilateral hamstrings, not able to perform plantar flexion or dorsiflexion. *MUSCLE TONE IN THE UPPER AND LOWER EXTREMITIES normal. No abnormal movements, fasciculations or atrophy identified. Neurological: *ORIENTATION to person, situation, time and place *LANGUAGE AND FUNCTION no significant aphasia, dysarthria present *ATTENTION AND CONCENTRATION are normal *FUND OF KNOWLEDGE aware of current events, past history, vocabulary *MENTAL attention span and concentration normal. *CN II visual singh normal *CN III,IV, PERRLA extraocular eye movements were full, no nystagmus and no ptosis noted. *CN V shows normal sensation and jaw opens symmetrically. *CN VII shows normal facial movement symmetrically, upper and lower bilaterally. *CN VIII shows no significant hearing loss on exam *CN IX-X palate elevated symmetrically *CN XI normal strength in the sternocleidomastoid muscles, symmetrical shoulder shrugging. *CN XII tongue protruded in the midline, with normal strength and movement. *SENSORY EXAMINATION light touch intact, diminished in left upper and l ower extremities *REFLEXES: deep tendon reflexes were normal and symmetrical , grade 2/4 diffusely *CEREBELLAR TESTING delayed finger to nose, heel/knee/bender *PAIN LEVEL 0/10 Results - Laboratory Findings CBC and BMP: 04/27/19 04:25 04/27/19 04:25 Abnormal lab findings: Abnormal lab results WBC 3.3 K/mcL (4.3-11.1) L 04/27/19 04:25 RBC 3.85 M/mcL (4.19-5.50) L 04/27/19 04:25 Hgb 12.7 g/dL (12.9-16.9) L 04/27/19 04:25 Hct 36.2 % (37.5-50.1) L 04/27/19 04:25 MCH 33.5 pg (28.0-33.3) H 04/26/19 04:17 Plt Count 64 K/mcL (140-400) L 04/27/19 04:25 1.4 K/mcL (1.6-8.9) L 04/26/19 04:17 PT 15.2 Seconds (9.4-12.1) H 04/26/19 07:25 Potassium 3.4 mEq/L (3.5-5.1) L 04/26/19 04:17 Chloride 108 mEq/L (98-107) H 04/26/19 04:17 BUN 7 mg/dL (8-23) L 04/26/19 04:17 0.66 mg/dL (0.70-1.30) L 04/25/19 20:03 Calcium 8.4 mg/dL (8.6-10.3) L 04/26/19 04:17 3.7 mg/dL (0.3-1.0) H 04/27/19 04:25 0.6 mg/dL (0.0-0.2) H 04/26/19 04:17 3.1 mg/dL (0.0-1.2) H 04/26/19 04:17 106 Units/L (34-104) H 04/27/19 04:25 6.3 g/dL (6.4-8.9) L 04/27/19 04:25 3.2 g/dL (3.5-5.7) L 04/27/19 04:25 1.0 (1.1-2.2) L 04/27/19 04:25 Vitamin B12 1371 pg/mL (250-1100) H 04/26/19 12:04 Small (Negative) H 04/25/19 19:49 4.0 mg/dL (Normal) H 04/25/19 19:49 Consult Discharge Plan - Plan [facility] - 05/05/19 2:00 pm <Ted Soto I - Last Filed: 04/27/19 16:44> Date of Encounter: 04/27/19 Assessment and Plan (1) History of hemorrhagic cerebrovascular accident (CVA) with residual deficit Current Visit: Yes Status: Chronic (2) Acute ischemic stroke Current Visit: Yes Status: Acute Pt was seen and examined, my medical decision was reviewed with the Resident Physician, I agree with the documented findings, disposition and treatment plan, as described except to the extent set forth below Initially patient is stable though he was found to have a lacunar cerebellar infarct but do not think that causing any of his symptoms especially it is in the upper part of the cerebellum and dizziness very small MRI did shows evidence of chronic microhemorrhages on gradient images would not recommend Plavix and suggest only aspirin at this time as well as statin perhaps low-dose. He was started on Sinemet and showing improvement in fine motor movements sugges vlad to increase the dose to 1 tablets 3 times a day Ted Stoo MD Objective - Constitutional Vitals: Temp Pulse Resp BP Pulse Ox 98.0 F 70 16 178/78 98 04/27/19 15:24 04/27/19 15:24 04/27/19 15:24 04/27/19 15:24 04/27/19 15:24 - Stroke Is the patient on any antithrombotics?: Yes Are there any contradictions to antithrombotics?: Yes Contraindication Antithromb by Day Two: Not Indicated - Due to Bleeding Disorder or Risk of Bleeding Results - Laboratory Findings CBC and BMP: 04/27/19 04:25 04/27/19 04:25 Abnormal lab findings: Abnormal lab results WBC 3.3 K/mcL (4.3-11.1) L 04/27/19 04:25 RBC 3.85 M/mcL (4.19-5.50) L 04/27/19 04:25 Hgb 12.7 g/dL (12.9-16.9) L 04/27/19 04:25 Hct 36.2 % (37.5-50.1) L 04/27/19 04:25 MCH 33.5 pg (28.0-33.3) H 04/26/19 04:17 Plt Count 64 K/mcL (140-400) L 04/27/19 04:25 1.4 K/mcL (1.6-8.9) L 04/26/19 04:17 PT 15.2 Seconds (9.4-12.1) H 04/26/19 07:25 Potassium 3.4 mEq/L (3.5-5.1) L 04/26/19 04:17 Chloride 108 mEq/L (98-107) H 04/26/19 04:17 BUN 7 mg/dL (8-23) L 04/26/19 04:17 0.66 mg/dL (0.70-1.30) L 04/25/19 20:03 Calcium 8.4 mg/dL (8.6-10.3) L 04/26/19 04:17 3.7 mg/dL (0.3-1.0) H 04/27/19 04:25 0.6 mg/dL (0.0-0.2) H 04/26/19 04:17 3.1 mg/dL (0.0-1.2) H 04/26/19 04:17 106 Units/L (34-104) H 04/27/19 04:25 6.3 g/dL (6.4-8.9) L 04/27/19 04:25 3.2 g/dL (3.5-5.7) L 04/27/19 04:25 1.0 (1.1-2.2) L 04/27/19 04:25 Vitamin B12 1371 pg/mL (250-1100) H 04/26/19 12:04 Small (Negative) H 04/25/19 19:49 4.0 mg/dL (Normal) H 04/25/19 19:49
--- NOTE | 2019-04-27 13:07 | Internal Med Progress Note ---
Hospitalist Progress Note - Encounter Date of Encounter: 04/27/19 Time of Encounter: 10:20 - Subjective Interval History: Mr. Puente is a 74 year old male with past medical history significant for hypertension, hemorrhagic stroke, ankylosing spondylosis, cervical fusion, rheumatoid arthritis, dementia, and GERD who presented to [place] from home due to frequent falls / ataxic gait. He had a hemorrhagic stroke in September 2018 and has progressive weakness, slurred speech, and frequent falls since. ER obtained CT of the head which showed no acute intracranial abnormality and CT of the cervical spine which showed extensive cervical fusion which causes artifact limiting evaluation otherwise no gross evidence of acute findings. Pt was seen and examined at bedside. He is more alert, awake and O x 3. He denied any CP / SOB. He did mention he felt weakness in Left side few days ago which followed by weakness in Rt UE a couple of days later. - Exam Vitals: Temp Pulse Resp BP Pulse Ox 98.0 F 72 18 169/74 96 04/27/19 10:44 04/27/19 10:44 04/27/19 10:44 04/27/19 10:44 04/27/19 10:44 Exam: Gen: Alert, awake, Oriented to time,place and person.. Looks very weak and lethargic Chest: Diminished breath sounds B/L, No wheezing, No crackles, No rales Heart: S1S2+ RRR No murmurs Abd: Soft, NT, BS +, No organomegaly Ext: No edema, pulses are palpable, No calf tenderness Neuro : He does have some ataxic gait. Tremors +. He does have b/l LE weakness with motor strength 3/5 Skin: No rash. - Assessment and Plan (1) Acute ischemic stroke Current Visit: Yes Status: Acute Assessment and Plan: His Brain MRI showed - an acute infarct in the left cerebellar hemisphere anteriorly as well as a questionable acute infarct along the left paramidline of the maria ines. He also have numerous scattered areas of blooming artifact are noted in the cerebral hemispheres, compatible with small microhemorrhages, usually related to underlying hypertension. Not a candidate for tPA due to out of time window and recent hemorrhagic stroke cont ASA 81mg Daily Will talk to neuro about adding plavix, he does have small microhemorrhages on MRI of head started on low dose Lipitro 20mg since he does have Cirrhosis of liver EKG showed NSR PT / OT eval Neuro on board cont neuro checks (2) Frequent falls Current Visit: Yes Status: Chronic Assessment and Plan: Reports frequent falls since September 2018 following hemorrhagic stroke. Head and neck CT without any acute abnormality. Cont fall precautions PT / OT eval - P May need ECF placement Also his symptoms were concerning for early parkinson's disease Will talk to Neuro (3) Slurred speech Current Visit: Yes Status: Chronic Assessment and Plan: Reports slurred speech following hemorrhagic stroke in September 2018. Denies any previous evaluation with speech therapy. ST eval (4) Generalized weakness Current Visit: Yes Status: Acute Assessment and Plan: Concerning for parkinson's especially with his shuffle and ataxic gait Will talk to Neurology PT / OT eval (5) Elevated bilirubin Current Visit: Yes Status: Chronic Assessment and Plan: Bilirubin elevated with known history of liver cirrhosis. AST and ALT within normal limits. He does have chronically elevated LFT's (6) Ankylosing spondylitis Current Visit: Yes Status: Chronic Assessment and Plan: Continue rheumatology follow up MRI of Lumbar spine showed : Multilevel central spinal canal narrowing, greatest at L1-L2, and L4-L5. (7) Pancytopenia Current Visit: Yes Status: Chronic Assessment and Plan: Due to Cirrhosis of liver f/u with Heme onc as an out pt Avoid anti coag on SCD's for DVT prophylaxis (8) Thrombocytopenia Current Visit: No Status: Chronic Assessment and Plan: Chronic, appears at baseline based on lab review but no recent labs for comparison. Denies any bleeding Continue hematology follow up on SCD's for anti coag - Time Spent with Patient Total time spent is greater than 50% in coordination of care (as documented) at patient's floor/unit and/or counseling patient: Internal Medicine: Result - Labs CBC & Chem 7: 04/27/19 04:25 04/27/19 04:25 Labs: Short CBC 04/27/19 Range/Units 04:25 WBC 3.3 L (4.3-11.1) K/mcL Hgb 12.7 L (12.9-16.9) g/dL Hct 36.2 L (37.5-50.1) % Plt Count 64 L (140-400) K/mcL BMP 04/27/19 04:25 Sodium 140 Potassium 3.5 Chloride 104 Carbon Dioxide 26 BUN 8 Creatinine 0.74 Glucose 78 Calcium 8.6 Liver Function 04/27/19 Range/Units 04:25 Total Bilirubin 3.7 H (0.3-1.0) mg/dL AST 27 (13-39) Units/L ALT 9 (7-52) Units/L Alkaline Phosphatase 106 H (34-104) Units/L Albumin 3.2 L (3.5-5.7) g/dL - ABG Interpretation ABG results: PT/INR, D-dimer PT 15.2 Seconds (9.4-12.1) H 04/26/19 07:25 - Impressions Impressions Brain MRI 04/26/19 09:30 IMPRESSION: 1. There is an acute infarct in the left cerebellar hemisphere anteriorly as well as a questionable acute infarct along the left paramidline of the maria ines. 2. Chronic infarcts are noted in the right centrum semiovale and bilateral thalami. 3. Cerebral parenchymal volume loss with moderate chronic microvascular white matter ischemic disease. 4. Numerous scattered areas of blooming artifact are noted in the cerebral hemispheres, compatible with small microhemorrhages, usually related to underlying hypertension. D/ /26/2019 22:03:14 Giancarlo Pretty MD / holly Interpreting Provider: Giancarlo Pretty MD Lumbar Spine MRI 04/26/19 10:59 IMPRESSION: 1. No evidence of an acute fracture. 2. Multilevel central spinal canal narrowing, greatest at L1-L2, and L4-L5. 3. Multilevel foraminal narrowing, as above. D/ /26/2019 22:08:05 Giancarlo Pretty MD / holly Interpreting Provider: Giancarlo Pretty MD - Stroke Is the patient on any antithrombotics?: Yes Consult Discharge Plan - Plan [facility]: [facility] Provider[facility] - 05/05/19 2:00 pm (6) Ankylosing spondylitis Qualifiers: Ankylosing spondylitis location: lumbar region Qualified Code(s): M45.6 - Ankylosing spondylitis lumbar region
[2019-04-28] MEDS: *HR* OxyCODONE Immed Rel 15 MG TABLET PO PRN (02:20)
[2019-04-28] MEDS: *HR* FentaNYL PATCH 12 MCG PATCH TD SCH (04:41)
[2019-04-28 09:27] LABS: Hematocrit 40.1 % (37.5-50.1); Mean Corpuscular HGB Conc 34.9 g/dL (31.6-35.5); Mean Corpuscular Hemoglobin 33.2 pg (28.0-33.3); Mean Platelet Volume 9.9 fL (9.4-12.4); Red Blood Count 4.22 M/mcL (4.19-5.50); Red Cell Distribution Width 13.1 % (11.5-14.5); White Blood Count 3.9 K/mcL (4.3-11.1)
[2019-04-28 10:38] LABS: Alanine Aminotransferase 13 Units/L (7-52); Albumin 3.4 g/dL (3.5-5.7); Alkaline Phosphatase 116 Units/L (34-104); Aspartate Amino Transferase 28 Units/L (13-39); BUN/Creatinine Ratio 12 (6-26); Bilirubin,Total 4.4 mg/dL (0.3-1.0); Blood Urea Nitrogen 8 mg/dL (8-23); Carbon Dioxide 26 mEq/L (23-29); Chloride 104 mEq/L (98-107); Chol/HDL Ratio 2.7 (0-4.9); Cholesterol 147 mg/dL (< 200); Globulin 3.4 g/dL (2.4-3.5); Glucose 113 mg/dL (70-105); HDL Cholesterol 54 mg/dL (40-59); LDL Cholesterol,Calculated 81 mg/dL (0-99); Magnesium 1.8 mg/dL (1.6-2.6); Osmolality,Calculated 289 (280-300); Potassium 3.6 mEq/L (3.5-5.1); Sodium 140 mEq/L (136-145); Total Protein 6.8 g/dL (6.4-8.9); Triglycerides 61 mg/dL (< 150); eGFR For African Americans > 60 (> 60); eGFR For Non-African Americans > 60 (> 60)
[2019-04-28] MEDS: Aspirin Enteric Coated 81 MG Tablet PO SCH (10:39)
[2019-04-28] MEDS: Cholecalciferol (D-3) 1,000 UNIT TABLET PO SCH (10:39)
[2019-04-28] MEDS: amLODIPine 5 MG TABLET PO SCH (10:40)
[2019-04-28] MEDS: Carbidopa/Levodopa 25/100 TABLET PO SCH ×3 (10:40→20:28)
--- NOTE | 2019-04-28 12:04 | Internal Med Progress Note ---
Hospitalist Progress Note - Encounter Date of Encounter: 04/28/19 Time of Encounter: 09:45 - Subjective Interval History: Mr. Puente is a 74 year old male with past medical history significant for hypertension, hemorrhagic stroke, ankylosing spondylosis, cervical fusion, rheumatoid arthritis, dementia, and GERD who presented to NH from home due to frequent falls / ataxic gait. He had a hemorrhagic stroke in September 2018 and has progressive weakness, slurred speech, and frequent falls since. ER obtained CT of the head which showed no acute intracranial abnormality and CT of the cervical spine which showed extensive cervical fusion which causes artifact limiting evaluation otherwise no gross evidence of acute findings. Pt was seen and examined at bedside. He is more alert, awake and O x 3. He denied any CP / SOB. He did mention he felt weakness in Left side few days ago which followed by weakness in Rt UE a couple of days later. No events over night. - Exam Vitals: Temp Pulse Resp BP Pulse Ox 98.3 F 72 16 154/70 97 04/28/19 11:54 04/28/19 11:54 04/28/19 11:54 04/28/19 11:54 04/28/19 11:54 Exam: Gen: Alert, awake, Oriented to time,place and person.. Looks very weak and lethargic Chest: Diminished breath sounds B/L, No wheezing, No crackles, No rales Heart: S1S2+ RRR No murmurs Abd: Soft, NT, BS +, No organomegaly Ext: No edema, pulses are palpable, No calf tenderness Neuro : He does have some ataxic gait. Tremors +. He does have b/l LE weakness with motor strength 3/5 Skin: No rash. - Assessment and Plan (1) Acute ischemic stroke Current Visit: Yes Status: Acute Assessment and Plan: His Brain MRI showed - an acute infarct in the left cerebellar hemisphere anteriorly as well as a questionable acute infarct along the left paramidline of the maria ines. He also have numerous scattered areas of blooming artifact are noted in the cer ebral hemispheres, compatible with small microhemorrhages, usually related to underlying hypertension. Not a candidate for tPA due to out of time window and recent hemorrhagic stroke cont ASA 81mg Daily only unable to ad plavix due to his current acute small microhemorrhages on MRI of head Cont on low dose Lipitro 20mg since he does have Cirrhosis of liver EKG showed NSR PT / OT eval Neuro on board cont neuro checks (2) HTN (hypertension) Current Visit: Yes Status: Acute Assessment and Plan: BP fairly controlled so inc his Norvasc to 10mg and added Metoprolol 25mg BID (3) Parkinsonian features Current Visit: Yes Status: Acute Assessment and Plan: started on Sinemet y/d (4) Frequent falls Current Visit: Yes Status: Chronic Assessment and Plan: Reports frequent falls since September 2018 following hemorrhagic stroke. Head and neck CT without any acute abnormality. Cont fall precautions PT / OT eval - recommend ECF placement for short term rehab Also his symptoms were concerning for early parkinson's disease Neuro started him on Sinemet (5) Slurred speech Current Visit: Yes Status: Chronic Assessment and Plan: Reports slurred speech following hemorrhagic stroke in September 2018. Denies any previous evaluation with speech therapy. (6) Generalized weakness Current Visit: Yes Status: Acute Assessment and Plan: Concerning for parkinson's Neuro started him on Sinemet PT / OT eval (7) Elevated bilirubin Current Visit: Yes Status: Chronic Assessment and Plan: Bilirubin elevated with known history of liver cirrhosis. AST and ALT within normal limits. He does have chronically elevated LFT's (8) Ankylosing spondylitis Current Visit: Yes Status: Chronic Assessment and Plan: Continue rheumatology follow up MRI of Lumbar spine showed : Multilevel central spinal canal narrowing, greatest at L1-L2, and L4-L5. (9) Pancytopenia Current Visit: Yes Status: Chronic Assessment and Plan: Due to Cirrhosis of liver f/u with Heme onc as an out pt Avoid anti coag on SCD's for DVT prophylaxis (10) Thrombocytopenia Current Visit: No Status: Chronic Assessment and Plan: Chronic, appears at baseline based on lab review but no recent labs for comparison. Denies any bleeding Continue hematology follow up on SCD's for anti coag - Time Spent with Patient Total time spent is greater than 50% in coordination of care (as documented) at patient's floor/unit and/or counseling patient: Internal Medicine: Result - Labs CBC & Chem 7: 04/28/19 08:53 04/28/19 08:53 Labs: Short CBC 04/28/19 Range/Units 08:53 WBC 3.9 L (4.3-11.1) K/mcL Hgb 14.0 (12.9-16.9) g/dL Hct 40.1 (37.5-50.1) % Plt Count 71 L (140-400) K/mcL BMP 04/28/19 08:53 Sodium 140 Potassium 3.6 Chloride 104 Carbon Dioxide 26 BUN 8 Creatinine 0.65 L Glucose 113 H Calcium 9.0 Liver Function 04/28/19 Range/Units 08:53 Total Bilirubin 4.4 H (0.3-1.0) mg/dL AST 28 (13-39) Units/L ALT 13 (7-52) Units/L Alkaline Phosphatase 116 H (34-104) Units/L Albumin 3.4 L (3.5-5.7) g/dL - ABG Interpretation ABG results: PT/INR, D-dimer PT 15.2 Seconds (9.4-12.1) H 04/26/19 07:25 - Stroke Is the patient on any antithrombotics?: Yes Are there any contradictions to antithrombotics?: No Contraindication Antithromb by Day Two: Not Indicated - Due to Bleeding Disorder or Risk of Bleeding Consult Discharge Plan - Plan Referrals: [facility],PCP [Primary Care Provider] - 05/05/19 2:00 pm ____ (2) HTN (hypertension) Qualifiers: Hypertension type: essential hypertension Qualified Code(s): I10 - Essential (primary) hypertension (8) Ankylosing spondylitis Qualifiers: Ankylosing spondylitis location: lumbar region Qualified Code(s): M45.6 - Ankylosing spondylitis lumbar region
--- NOTE | 2019-04-28 15:05 | Neurology Progress Note ---
Date of Encounter: 04/28/19 Time of Encounter: 15:03 Assessment and Plan (1) History of hemorrhagic cerebrovascular accident (CVA) with residual deficit Current Visit: Yes Status: Chronic (2) Acute ischemic stroke Current Visit: Yes Status: Acute As far as his cerebellar stroke he seems to be doing stable and good suggest antiplatelet therapy His Parkinson symptoms are also getting better with Sinemet suggest to continue Remained stable okay to transfer to acute rehabilitation We will sign off call if needed Subjective Principal diagnosis: Acute Ischemic Stroke Interval history: Been doing better stable no other new findings improving with low-dose of Sinemet Objective - Constitutional Vitals: Temp Pulse Resp BP Pulse Ox 98.3 F 72 16 154/70 97 04/28/19 11:54 04/28/19 11:54 04/28/19 11:54 04/28/19 11:54 04/28/19 11:54 General appearance: Present: A&O X 3 - Stroke Is the patient on any antithrombotics?: Yes Are there any contradictions to antithrombotics?: Yes Contraindication Antithromb by Day Two: Not Indicated - Due to Bleeding Disorder or Risk of Bleeding Results - Laboratory Findings CBC and BMP: 04/28/19 08:53 04/28/19 08:53 Abnormal lab findings: Abnormal lab results WBC 3.9 K/mcL (4.3-11.1) L 04/28/19 08:53 RBC 3.85 M/mcL (4.19-5.50) L 04/27/19 04:25 Hgb 12.7 g/dL (12.9-16.9) L 04/27/19 04:25 Hct 36.2 % (37.5-50.1) L 04/27/19 04:25 MCH 33.5 pg (28.0-33.3) H 04/26/19 04:17 Plt Count 71 K/mcL (140-400) L 04/28/19 08:53 1.4 K/mcL (1.6-8.9) L 04/26/19 04:17 PT 15.2 Seconds (9.4-12.1) H 04/26/19 07:25 Potassium 3.4 mEq/L (3.5-5.1) L 04/26/19 04:17 Chloride 108 mEq/L (98-107) H 04/26/19 04:17 BUN 7 mg/dL (8-23) L 04/26/19 04:17 0.65 mg/dL (0.70-1.30) L 04/28/19 08:53 Glucose 113 mg/dL (70-105) H 04/28/19 08:53 Calcium 8.4 mg/dL (8.6-10.3) L 04/26/19 04:17 4.4 mg/dL (0.3-1.0) H 04/28/19 08:53 0.6 mg/dL (0.0-0.2) H 04/26/19 04:17 3.1 mg/dL (0.0-1.2) H 04/26/19 04:17 116 Units/L (34-104) H 04/28/19 08:53 6.3 g/dL (6.4-8.9) L 04/27/19 04:25 3.4 g/dL (3.5-5.7) L 04/28/19 08:53 1.0 (1.1-2.2) L 04/28/19 08:53 Vitamin B12 1371 pg/mL (250-1100) H 04/26/19 12:04 Small (Negative) H 04/25/19 19:49 4.0 mg/dL (Normal) H 04/25/19 19:49 Consult Discharge Plan - Plan [facility]: [facility] Provider[facility] - 05/05/19 2:00 pm
[2019-04-29] MEDS ORDERED: Haloperidol Lactate 5 MG/ML VIAL IVP ONE (00:07)
[2019-04-29] MEDS ORDERED: *HR* Promethazine 25 MG/ML VIAL IVP ONE (00:08)
[2019-04-29] MEDS ORDERED: Haloperidol Lactate 5 MG/ML VIAL ONE (00:11)
[2019-04-29] MEDS ORDERED: *HR* Promethazine 25 MG/ML VIAL ONE (00:11)
--- NOTE | 2019-04-29 01:43 | Event Note ---
Date of Encounter: 04/28/19 Time of Encounter: 20:59 Alerted by patient's nurse JOSHUA Medina that patient been admitted for falls and positive CVA. Patient is supposed to go to [facility] tomorrow but was stating he wished to go home now. Family concerned that patient will become agitated and try and leave. Patient has history of dementia and family reports there is no reasoning with the patient when he becomes agitated. Alerted by nurse at 21:17 the family had left because they felt he stated he would continue to become agitated wishing for them to take him home. Alerted at 23:50 that the patient was agitated again, stating that his is coming to pick him up. BP 172/74 and HR 51 at the time. One-time order of Haldol 0.5 mg IVP and one-time order a Phenergan 12.5 mg IVP ordered for patient's agitation. Alerted at 01:02 the patient had attempted to urinate twice but was only able to output 25 mls. Patient bladder scanned and found to have 596 mls. One-time straight catheter ordered which yielded 600 mls. Alerted at 01:38 that the patient was much calmer and stating that he will stay until we tell him to leave. Nurse instructed to continue monitoring the patient very closely and alert me immediately of any adverse or behavioral changes.
[2019-04-29 06:40] LABS: Red Cell Distribution Width 13.2 % (11.5-14.5)
[2019-04-29 06:41] LABS: Hematocrit 39.3 % (37.5-50.1); Hemoglobin 13.7 g/dL (12.9-16.9); Immature Platelets 2.1 % (1.1-6.1); Mean Corpuscular HGB Conc 34.9 g/dL (31.6-35.5); Mean Corpuscular Hemoglobin 33.1 pg (28.0-33.3); Mean Corpuscular Volume 94.9 fL (83.0-100.0); Mean Platelet Volume 9.5 fL (9.4-12.4); Red Blood Count 4.14 M/mcL (4.19-5.50); White Blood Count 5.5 K/mcL (4.3-11.1)
[2019-04-29 08:47] LABS: BUN/Creatinine Ratio 18 (6-26); Blood Urea Nitrogen 13 mg/dL (8-23); Calcium 8.8 mg/dL (8.6-10.3); Carbon Dioxide 27 mEq/L (23-29); Chloride 106 mEq/L (98-107); Glucose 87 mg/dL (70-105); Osmolality,Calculated 287 (280-300); Potassium 3.7 mEq/L (3.5-5.1); Sodium 139 mEq/L (136-145); eGFR For African Americans > 60 (> 60); eGFR For Non-African Americans > 60 (> 60)
[2019-04-29] MEDS ORDERED: amLODIPine 5 MG TABLET PO SCH (09:00)
[2019-04-29] MEDS: Cholecalciferol (D-3) 1,000 UNIT TABLET PO SCH (09:50)
[2019-04-29] MEDS: *HR* OxyCODONE Immed Rel 15 MG TABLET PO PRN (09:50)
[2019-04-29] MEDS: Aspirin Enteric Coated 81 MG Tablet PO SCH (09:51)
[2019-04-29] MEDS: Carbidopa/Levodopa 25/100 TABLET PO SCH (09:51)
--- NOTE | 2019-04-29 10:14 | Discharge Summary ---
- NOTES TO OUTPATIENT PROVIDER Notes to Outpatient Provider: f/u with PCP in one week. f/u with Neurology in 1-2 weeks. New medications started : Aspirin 81 mg Daily, Metoporlol 25mg PO BID and Lipitor 20 mg HS. Also added Flomax for his urinary retention. Orders not resulted at time of discharge: Pending orders 04/27/19 13:20 EKG [ECG 12 lead ECG] [ECG] Routine 04/30/19 04:00 BMP [Basic Metabolic Panel] AM 0400 CBC no Diff [Complete Blood Count w/o Diff] [HEME] AM 0400 Date of Encounter: 04/29/19 Time of Encounter: 10:12 - Discharge Diagnosis (1) Acute ischemic stroke Priority: Primary Status: Acute (2) HTN (hypertension) Priority: Secondary Status: Acute Qualifiers: Hypertension type: essential hypertension Qualified Code(s): I10 - Essential (primary) hypertension (3) Parkinsonian features Priority: Secondary Status: Acute (4) Frequent falls Priority: Secondary Status: Chronic (5) Slurred speech Priority: Secondary Status: Chronic (6) Generalized weakness Priority: Secondary Status: Acute (7) Elevated bilirubin Priority: Secondary Status: Chronic (8) Ankylosing spondylitis Priority: Secondary Status: Chronic Qualifiers: Ankylosing spondylitis location: lumbar region Qualified Code(s): M45.6 - Ankylosing spondylitis lumbar region (9) Pancytopenia Priority: Secondary Status: Chronic (10) Thrombocytopenia Priority: Secondary Status: Chronic (11) Urinary retention Priority: Secondary Status: Acute Hospital course: Mr. Puente is a 74 year old male with past medical history significant for hypertension, hemorrhagic stroke, ankylosing spondylosis, cervical fusion, rheumatoid arthritis, dementia, and GERD who presented to [facility] from home due to frequent falls / ataxic gait. He had a hemorrhagic stroke in September 2018 and has progressive weakness, slurred speech, and frequent falls since. ER obtained CT of the head which showed no acute intracranial abnormality and CT of the cervical spine which showed extensive cervical fusion which causes artifact limiting evaluation otherwise no gross evidence of acute findings. Pt was seen and examined at bedside. He is more alert, awake and O x 3. He guillermina ed any CP / SOB. He did mention he felt weakness in Left side few days ago which followed by weakness in Rt UE a couple of days later. His Brain MRI showed - an acute infarct in the left cerebellar hemisphere anteriorly as well as a questionable acute infarct along the left paramidline of the maria ines. He also have numerous scattered areas of blooming artifact are noted in the cerebral hemispheres, compatible with small microhemorrhages, usually related to underlying hypertension. At this point Neuro recommend to continue ASA only. unable to add palvix due to his current acute small microhemorrhages on MRI of head. He was evaluated by neurology, who recommend to cont ASA and Lipitor. Since he does have cirrhosis of liver and chronically elevated LFT's started him on low dose Lipitor only. He also parkinson like features with mask like face, resting tremors and ataxia gait. He was started on Sinemet by Neurology. Pt was evaluated by PT / OT who recommended ECF placement for short term PT / OT. So will d/c him to ECF in stable condition today. - Time Spent with Patient Total time spent providing and/or coordinating discharge services: - Discharge Medications Prescriptions: New Aspirin Enteric Coated [Aspirin EC] 81 mg PO DAILY #30 tablet. Tamsulosin [Flomax] 0.4 mg PO DAILY #30 capsule Metoprolol [Lopressor] 25 mg PO BID tablet amLODIPine [Norvasc] 10 mg PO DAILY tablet OxyCODONE Immed Rel [Roxicodone 15 MG] 15 mg PO Q6HR PRN 4 Days #15 tablet PRN Reason: Pain Carbidopa/Levodopa 25/100 [Sinemet 25/100] 1 each PO TID #90 tablet Continued Polyethylene Glycol 3350 [MiraLAX] 17 gm PO DAILY Omeprazole [PriLOSEC] 20 mg PO DAILY DiphenhydraMINE [Benadryl] 2 cap PO HS Calcium Carbonate 650 mg PO DAILY Ergocalciferol (VITAMIN D2) [Vitamin D] 1,200 unit PO DAILY Cyclobenzaprine HCl 5 mg PO DAILY FentaNYL PATCH [Duragesic] 25 mcg TD Q48H Discontinued amLODIPine [Norvasc] 5 mg PO DAILY Oxycodone HCl [Roxybond] 15 mg PO 5XD PRN PRN Reason: Breakthrough Pain Home Medications: Calcium Carbonate 650 mg PO DAILY 07/28/16 [History] DiphenhydraMINE [Benadryl] 2 cap PO HS 07/28/16 [History] Ergocalciferol (VITAMIN D2) [Vitamin D] 1,200 unit PO DAILY 07/28/16 [History] Omeprazole [PriLOSEC] 20 mg PO DAILY 07/28/16 [History] Polyethylene Glycol 3350 [MiraLAX] 17 gm PO DAILY 07/28/16 [History] Cyclobenzaprine HCl 5 mg PO DAILY 04/21/17 [History] FentaNYL PATCH [Duragesic] 25 mcg TD Q48H 04/26/19 [History] Aspirin Enteric Coated [Aspirin EC] 81 mg PO DAILY #30 tablet. 04/29/19 [Rx] Carbidopa/Levodopa 25/100 [Sinemet 25/100] 1 each PO TID #90 tablet 04/29/19 [Rx] Metoprolol [Lopressor] 25 mg PO BID tablet 04/29/19 [Rx] OxyCODONE Immed Rel [Roxicodone 15 MG] 15 mg PO Q6HR PRN 4 Days #15 tablet 04/29/19 [Rx] Tamsulosin [Flomax] 0.4 mg PO DAILY #30 capsule 04/29/19 [Rx] amLODIPine [Norvasc] 10 mg PO DAILY tablet 04/29/19 [Rx] Allergies/Adverse Reactions: Allergy/AdvReac Type Severity Reaction Status Date / Time diazepam [From Valium] Allergy Unknown Unknown Verified 04/25/19 22:38 latex Allergy Unknown Unknown Verified 04/25/19 22:38 methadone [Methadone] Allergy Unknown Unknown Verified 04/25/19 22:38 morphine Allergy Unknown Itching Verified 04/25/19 22:38 Date of admission: 04/26/19 12:42 [facility] care physician: [facility] Consults: 04/25/19 23:23 Consult to Integration Analyst [CONS] Routine Reason for SW Consult: Discharge Planning-frequent falls 04/26/19 02:18 Consult to Neurology [CONS] Routine Consulting Provider: Neurology [facility] Reason for Consult: Reportedly had hemorrhagic stroke in September 2018 that resolved without intervention. However has had progressive weakness and frequent falls since and has had no neuorlogy follow up since. Please see and evaluate for recommendations if any. Call Completed: No 04/26/19 02:23 Consult to Physical Therapy [CONS] Routine Comment: Evaluate, develop and implement POC Reason for Consult: Reportedly had hemorrhagic stroke in September 2018 that resolved without intervention. However has had progressive weakness and frequent falls since. Please evaluate and treat. Does patient have active BEDREST order?: No Is patient medically & hemodynamically stable?: Yes 04/26/19 02:24 Consult to Occupational Therapy [CONS] Routine Comment: Evaluate, develop and implement POC Reason for Consult: Reportedly had hemorrhagic stroke in September 2018 that resolved without intervention. However has had progressive weakness and frequent falls since. Please evaluate and treat. Does patient have active BEDREST order?: No Is patient medically & hemodynamically stable?: Yes - Constitutional Vitals: Temp Pulse Resp BP Pulse Ox 98.0 F 53 15 137/80 98 04/29/19 06:53 04/29/19 06:53 04/29/19 06:53 04/29/19 06:53 04/29/19 06:53 General appearance: Present: cooperative, A&O X 3, no acute distress, answers questions appropriately Exam: Gen: Alert, awake, Oriented to time,place and person.. Looks very weak and lethargic Chest: Diminished breath sounds B/L, No wheezing, No crackles, No rales Heart: S1S2+ RRR No murmurs Abd: Soft, NT, BS +, No organomegaly Ext: No edema, pulses are palpable, No calf tenderness Neuro : He does have b/l LE weakness with motor strength 3/5 Skin: No rash. - Patient Status Disposition: Transfer SNF Condition: Good Overall status at discharge: patient is back to baseline - Discharge Instructions Follow Up With: [facility] Care Provider[facility] - 05/05/19 2:00 pm Ted Soto MD [Partnered Physician] - - Diet and Activity Activity: as per physical therapy, increase activity as tolerated Diet: low salt diet - Stroke Is the patient on any antithrombotics?: No Are there any contradictions to antithrombotics?: Yes Contraindication Antithromb by Day Two: Not Indicated - Due to Bleeding Disorder or Risk of Bleeding
--- NOTE | 2019-04-29 10:24 | Physician Discharge Referral ---
ExtendedCare Referral Info Transfer To: F Provider in Charge after Transfer: PCP Institutional Level of Care: Skilled - Diagnosis (1) Acute ischemic stroke Status: Acute (2) HTN (hypertension) Status: Acute (3) Parkinsonian features Status: Acute (4) Frequent falls Status: Chronic (5) Slurred speech Status: Chronic (6) Generalized weakness Status: Acute (7) Elevated bilirubin Status: Chronic (8) Ankylosing spondylitis Status: Chronic (9) Pancytopenia Status: Chronic (10) Thrombocytopenia Status: Chronic (11) Urinary retention Status: Acute - Transfer Medications Prescriptions: Aspirin Enteric Coated [Aspirin EC] 81 mg PO DAILY #30 tablet. Tamsulosin [Flomax] 0.4 mg PO DAILY #30 capsule OxyCODONE Immed Rel [Roxicodone 15 MG] 15 mg PO Q6HR PRN 4 Days #15 tablet PRN Reason: Pain Carbidopa/Levodopa 25/100 [Sinemet 25/100] 1 each PO TID #90 tablet Home Medications: Calcium Carbonate 650 mg PO DAILY 07/28/16 [History] DiphenhydraMINE [Benadryl] 2 cap PO HS 07/28/16 [History] Ergocalciferol (VITAMIN D2) [Vitamin D] 1,200 unit PO DAILY 07/28/16 [History] Omeprazole [PriLOSEC] 20 mg PO DAILY 07/28/16 [History] Polyethylene Glycol 3350 [MiraLAX] 17 gm PO DAILY 07/28/16 [History] Cyclobenzaprine HCl 5 mg PO DAILY 04/21/17 [History] FentaNYL PATCH [Duragesic] 25 mcg TD Q48H 04/26/19 [History] Aspirin Enteric Coated [Aspirin EC] 81 mg PO DAILY #30 tablet. 04/29/19 [Rx] Carbidopa/Levodopa 25/100 [Sinemet 25/100] 1 each PO TID #90 tablet 04/29/19 [Rx] Metoprolol [Lopressor] 25 mg PO BID tablet 04/29/19 [Rx] OxyCODONE Immed Rel [Roxicodone 15 MG] 15 mg PO Q6HR PRN 4 Days #15 tablet 04/29/19 [Rx] Tamsulosin [Flomax] 0.4 mg PO DAILY #30 capsule 04/29/19 [Rx] amLODIPine [Norvasc] 10 mg PO DAILY tablet 04/29/19 [Rx] Allergies/Adverse Reactions: Allergy/AdvReac Type Severity Reaction Status Date / Time diazepam [From Valium] Allergy Unknown Unknown Verified 04/25/19 22:38 latex Allergy Unknown Unknown Verified 04/25/19 22:38 methadone [Methadone] Allergy Unknown Unknown Verified 04/25/19 22:38 morphine Allergy Unknown Itching Verified 04/25/19 22:38 - Respiratory Orders Smoking Cessation: Smoking cessation has been advised. For more information, call the [place] Tobacco Quit Line at 9-393-YTBBNOW. CERTIFICATION: I certify that the transfer of the above named patient to an Extended Care Facility is necessary for the continuing treatment of the diagnosis listed. The above information is true and accurate reflection of patient's current condition. Confidential - Redisclosure prohibited without a patient's written consent.
[2019-04-29 12:09] VITALS: BP 136/74
--- NOTE | 2019-04-29 15:59 | Electrocardiograph Report ---
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
== END 2019-04-29 14:23 | DRG 65 ==
LOC: 3BNU 17:30 → EMEROOARM 17:30 → SUATTDRO 21:56 → 3BNU 21:57
PROVIDERS: ADMIT Family Medicine; ATTEND Family Medicine

== ENCOUNTER 2019-06-28 02:12 | Observation (INO) ==
[2019-06-28] MEDS ORDERED: Isovue-370 500 ML BOTTLE IVP ONE (02:22)
[2019-06-28] MEDS ORDERED: Pantoprazole 40 MG VIAL IVP ONE (02:23)
--- NOTE | 2019-06-28 02:23 | Emergency Department Note ---
Disposition Clinical Impression: Generalized weakness, Thrombocytopenia, Colitis, Upper GI bleeding, Hypokalemia Hematemesis Qualifiers: Nausea presence: with nausea Qualified Code(s): K92.0 - Hematemesis Altered mental status Qualifiers: Altered mental status type: unspecified Qualified Code(s): R41.82 - Altered mental status, unspecified Disposition: Admitted As Inpatient Condition: Critical [facility] - Forms: ED Satisfaction Letter Time of Disposition: 06:19 General Adult HPI - General Stated complaint: vomitting bld Time Seen by Provider: 06/28/19 02:19 Source: patient, family, EMS Mode of arrival: EMS Limitations: other (Dementia) Nursing Notes Reviewed: Yes Vital Signs Reviewed: Yes - History of Present Illness HPI Narrative: Patient is a 74-year-old male who is presenting with hematemesis and altered mentation. Patient has known history of cirrhosis with portal hypertension, per family is currently being worked up at this point in time for varices, hy pertension, hyperlipidemia, dementia and CVA 2. Per patient's family, just prior to arrival, the patient was in bed, woke up with significant abdominal pain and nausea and had an significant episode of hematemesis, described to be bright red blood that went all over the sheets, they then stated that he was having difficulty with identifying their names, did not recognize them and that he seemed altered and confused. Patient states that he does not necessarily recall this event. He currently denies any pain, no abdominal pain, nausea or vomiting at this time, he has had no further episodes of hematemesis. Per EMS, the patient was alert and oriented on their arrival, he had no further episodes of hematemesis in route, he is not on a blood thinner that the patient or family is aware of. He denies chest pain, shortness of breath. Per his he is also been having some lower abdominal pain, which she describes to be suprapubic in nature, usually complaining of this for the past few days, and then today he had one episode of hematuria, and she became concerned. Patient does wear a condom catheter secondary to urinary incontinence. - Related Data Home Medications Medication Instructions Recorded Confirmed Calcium Carbonate 650 mg PO DAILY 07/28/16 05/19/19 DiphenhydraMINE [Benadryl] 2 cap PO HS 07/28/16 04/25/19 Ergocalciferol (VITAMIN D2) 1,200 unit PO DAILY 07/28/16 05/19/19 [Vitamin D] Omeprazole [PriLOSEC] 20 mg PO DAILY 07/28/16 05/19/19 Polyethylene Glycol 3350 [MiraLAX] 17 gm PO DAILY 07/28/16 05/19/19 Cyclobenzaprine HCl 5 mg PO DAILY 04/21/17 05/19/19 Albuterol Neb 90 IH PRN 05/19/19 Cyanocobalamin (B-12) 1,000 PO DAILY 05/19/19 GuaiFENesin Liq 100 PO TID 05/19/19 Ondansetron 4 mg PO DAILY PRN 05/19/19 OxyCODONE Immed Rel [Roxicodone 15 30 mg PO Q6HR PRN 05/19/19 05/19/19 MG] Potassium Chloride 10 meq PO DAILY 05/19/19 FentaNYL PATCH [Duragesic] 12 mcg TD Q48H 06/28/19 06/28/19 Previous Rx's Medication Instructions Recorded Aspirin Enteric Coated [Aspirin EC] 81 mg PO DAILY #30 tablet. 04/29/19 Carbidopa/Levodopa 25/100 [Sinemet 1 each PO TID #90 tablet 04/29/19 25/100] Metoprolol [Lopressor] 25 mg PO BID tablet 04/29/19 Tamsulosin [Flomax] 0.4 mg PO DAILY #30 capsule 04/29/19 amLODIPine [Norvasc] 10 mg PO DAILY tablet 04/29/19 Allergies Allergy/AdvReac Type Severity Reaction Status Date / Time diazepam [From Valium] Allergy Unknown Unknown Verified 04/25/19 22:38 latex Allergy Unknown Unknown Verified 04/25/19 22:38 methadone [Methadone] Allergy Unknown Unknown Verified 04/25/19 22:38 morphine Allergy Unknown Itching Verified 04/25/19 22:38 All systems ED: reviewed and negative except as stated. Review of Systems: As Per HPI Constitutional: Denies: fever, chills ENT ED: Denies: congestion Cardiovascular: Denies: chest pain, dyspnea on exertion Respiratory: Denies: cough Gastrointestinal: Reports: abdominal pain, nausea, vomiting, hematemesis. Denies: diarrhea, melena, hematochezia Genitourinary: Reports: dysuria, hematuria. Denies: urgency, frequency Musculoskeletal: Denies: back pain Integumentary: Denies: rash Neurological: Reports: confusion. Denies: headache, weakness, numbness, p aresthesias Endocrine: Reports: fatigue Past Medical History - Past Medical History Medical history: Reports: cirrhosis, dementia, GERD, hypertension, RA, other Surgical history: Reports: cholecystectomy, orthopedic, other Psychiatric history: Reports: no psych history - Social History Smoking Status: Former smoker Smokeless Tobacco Status: No Alcohol use: Reports: none Drug use: Reports: none Physical Exam - General Limitations: other (Dementia) General appearance: alert, in no apparent distress - Head Head exam: atraumatic, normocephalic - Eye Eye exam: Present: PERRL. Absent: scleral icterus - ENT ENT exam: mucous membranes moist - Neck Neck exam: Present: trachea midline - Chest Chest inspection: Present: symmetric chest wall rise - Respiratory Respiratory exam: Present: normal lung sounds bilaterally - Cardiovascular Cardiovascular exam: Present: regular rate, normal rhythm - Abdominal Exam Abdominal exam: Present: soft, Non-Tender. Absent: distention, guarding - Extremities Exam Extremities exam: Present: normal inspection, full ROM. Absent: tenderness, pedal edema - Expanded Lower Extremity Exam Neurovascular/Tendon exam: Absent: motor deficit, sensory deficit, tendon deficit - Back Exam Back exam: Present: normal inspection. Absent: vertebral tenderness - Neurological Exam Neurological exam: Present: alert, oriented X3 - Psychiatric Psychiatric exam: Present: normal affect, normal mood - Skin Skin exam: Present: warm, dry, other (Patient with what appears to be slightly y ellowing of the skin to the face as well as part of the upper chest) Course Vital Signs Temperature 99.9 F H 06/28/19 02:21 Pulse Rate 101 06/28/19 02:21 Respiratory Rate 18 06/28/19 02:21 Blood Pressure 141/67 06/28/19 02:21 O2 Sat by Pulse Oximetry 99 06/28/19 02:21 Temperature 100.9 F H 06/28/19 05:45 Pulse Rate 98 06/28/19 06:00 Respiratory Rate 24 06/28/19 06:00 Blood Pressure 140/64 06/28/19 06:00 O2 Sat by Pulse Oximetry 97 06/28/19 06:00 Oxygen Delivery Oxygen Delivery Room Air Medical Decision Making - MDM Narrative Medical decision making narrative: Patient is a 74-year-old male who is presenting with hematemesis as well as hematuria. Patient with known history of cirrhosis, portal hypertension, [facility], no history of variceal bleed, patient is not on anticoagulation medications, hypertension, hyperlipidemia, CVA 2, and dementia. Patient was brought in via EMS with initial concern for hematemesis and hematuria. Patient does wear chronic condom catheter. Per family they were concerned is that he also seems somewhat confused during this episode. On initial arrival, patient is alert and oriented 3, in no acute distress, he has NIH of 0 with no acute signs of injury. Patient without further hematemesis in our ER. No active bleeding at this time. Patient does have a condom catheter in place with dark urine in the catheter bag, it within the tubing there is no tom hematuria that is seen. X-ray work was performed and reviewed, CBC does show stable hemoglobin, patient continues to be thrombocytopenic, no leukocytosis. Patient does have a critical lab including a lactic acid of 5, normal kidney function, slightly low potassium, this was replaced with 40 mEq. patient continues to have severely elevated T bili and alkaline phosphatase which appears to be slightly elevated from his baseline. Ammonia is within normal limits. Urine does show concern for possible urinary tract infection. Chest x-ray shows no acute opacification or identification of infection, and EKG shows no acute ischemic changes. Patient has not had any hematemesis or active variceal bleed while here in the ER. Unknown if patient has actually been kati gnosed with varices however he does have history of cirrhosis secondary to reported by Starla. No history of GI bleed or variceal bleed in the past. Patient's vitals have otherwise remained stable, no hypotension. CT of the head shows no acute intracranial process, changes which are chronic were seen. CT of the abdomen and pelvis does show concern for cystitis, stool within the rectal vault also possible thickening. There is note of cirrhosis with portal hypertension, with this suspect possible variceal bleed however unknown at this time. We will go ahead and treat the patient with IV Protonix at this time. Patient was given initial dose of 40, and then started on drip for concern for continued variceal bleed. Given acute infection, patient was given a total of 2.5L of normal saline, blood cultures were drawn. Antibiotics were started including longer Rocephin for possible variceal bleed as well as Flagyl for concern for possible colitis. CT of the abdomen and pelvis with IV contrast does not show any signs of bowel ischemia. I did speak with the on-call GI bleed specialist, Dr. Freitas, he does state that at this point in time as patient is relatively stable, no need for immediate intervention, does agree with the current treatment process with PPI and Protonix drip. States that he will consult and see the patient in the morning and is also available if there is any acute variceal bleed that happens in the meantime. I did speak with the hospitalist for admission, at this point in time recommending octreotide bolus and drip, this will be started. - Medical Records Medical records reviewed: Yes I reviewed the patient's medical records. - Lab Data Lab results reviewed: Yes I reviewed the patient's lab results. Result diagrams: 06/28/19 03:24 06/28/19 03:24 Lab Results 06/28/19 06/28/19 06/28/19 Range/Units 02:22 02:47 03:24 WBC 8.9 (4.3-11.1) K/mcL RBC 3.76 L (4.19-5.50) M/mcL Hgb 12.6 L (12.9-16.9) g/dL Hct 35.8 L (37.5-50.1) % MCV 95.2 (83.0-100.0) fL MCH 33.5 H (28.0-33.3) pg MCHC 35.2 (31.6-35.5) g/dL RDW 13.9 (11.5-14.5) % Plt Count 55 L (140-400) K/mcL MPV 9.2 L (9.4-12.4) fL Immature Gran % 0.7 (0-4) % Seg Neutrophils % 93.9 % Lymphocytes % 2.1 % Monocytes % 2.9 % Eosinophils % 0.2 % Basophils % 0.2 % Neutrophils # 8.4 (1.6-8.9) K/mcL Lymphocytes # 0.2 L (0.6-4.6) K/mcL Monocytes # 0.3 (0.0-1.3) K/mcL Eosinophils # 0.0 (0.0-0.6) K/mcL Basophils # 0.0 (0.0-0.2) K/mcL Platelet Estimate Decreased L (Normal) Immature Plt Fraction 1.3 (1.1-6.1) % PT (9.4-12.1) Seconds INR APTT (26.0-36.0) Seconds Sodium (136-145) mEq/L Potassium (3.5-5.1) mEq/L Chloride (98-107) mEq/L Carbon Dioxide (23-29) mEq/L BUN (8-23) mg/dL Creatinine (0.70-1.30) mg/dL Est GFR ( Amer) (> 60) Est GFR (Non-Af Amer) (> 60) BUN/Creatinine Ratio (6-26) Glucose (70-105) mg/dL POC Glucose 101 H (70-99) mg/dL Calculated Osmolality (280-300) Lactic Acid (0.5-2.2) mmol/L Calcium (8.6-10.3) mg/dL Total Bilirubin (0.3-1.0) mg/dL Direct Bilirubin (0.0-0.2) mg/dL Indirect Bilirubin (0.0-1.2) mg/dL AST (13-39) Units/L ALT (7-52) Units/L Alkaline Phosphatase (34-104) Units/L Ammonia (16-53) mcmol/L Troponin I (< 0.04) ng/mL Serum Total Protein (6.4-8.9) g/dL Albumin (3.5-5.7) g/dL Globulin (2.4-3.5) g/dL Albumin/Globulin Ratio (1.1-2.2) Ur Specimen Adequacy See below A Urine Color Brown (Yellow) Urine Clarity Cloudy A (Clear) Urine pH 6.0 (5.0-8.0) pH Units Ur Specific [place] >= 1.030 H (1.010-1.025) Urine Protein >=300 H (Neg-Trace) mg/dL Urine Glucose (UA) 100 H (Normal) mg/dL Urine Ketones Trace H (Negative) mg/dL Urine Blood Large H (Negative) Urine Nitrite Negative (Negative) Urine Bilirubin Small H (Negative) Urine Urobilinogen Normal (Normal) mg/dL Ur Leukocyte Esterase Trace H (Negative) Urine Microscopic RBC TNTC H (0-3) per hpf Urine Microscopic WBC Present (0-3) per hpf Amorphous Sediment Present (Few) Urine Bacteria Present (None-Few) per hpf Ur Culture Indicated? YES A (NO) Ethyl Alcohol (Less than 10) mg/dL Blood Type Antibody Screen 06/28/19 06/28/19 06/28/19 Range/Units 03:24 03:24 03:24 WBC (4.3-11.1) K/mcL RBC (4.19-5.50) M/mcL Hgb (12.9-16.9) g/dL Hct (37.5-50.1) % MCV (83.0-100.0) fL MCH (28.0-33.3) pg MCHC (31.6-35.5) g/dL RDW (11.5-14.5) % Plt Count (140-400) K/mcL MPV (9.4-12.4) fL Immature Gran % (0-4) % Seg Neutrophils % % Lymphocytes % % Monocytes % % Eosinophils % % Basophils % % Neutrophils # (1.6-8.9) K/mcL Lymphocytes # (0.6-4.6) K/mcL Monocytes # (0.0-1.3) K/mcL Eosinophils # (0.0-0.6) K/mcL Basophils # (0.0-0.2) K/mcL Platelet Estimate (Normal) Immature Plt Fraction (1.1-6.1) % PT 15.4 H (9.4-12.1) Seconds INR 1.4 APTT 30.6 (26.0-36.0) Seconds Sodium 140 (136-145) mEq/L Potassium 3.1 L (3.5-5.1) mEq/L Chloride 107 (98-107) mEq/L Carbon Dioxide 20 L (23-29) mEq/L BUN 15 (8-23) mg/dL Creatinine 0.97 (0.70-1.30) mg/dL Est GFR ( Amer) > 60 (> 60) Est GFR (Non-Af Amer) > 60 (> 60) BUN/Creatinine Ratio 15 (6-26) Glucose 109 H (70-105) mg/dL POC Glucose (70-99) mg/dL Calculated Osmolality 291 (280-300) Lactic Acid (0.5-2.2) mmol/L Calcium 8.9 (8.6-10.3) mg/dL Total Bilirubin 3.2 H (0.3-1.0) mg/dL Direct Bilirubin 1.0 H (0.0-0.2) mg/dL Indirect Bilirubin 2.2 H (0.0-1.2) mg/dL AST 75 H (13-39) Units/L ALT 41 (7-52) Units/L Alkaline Phosphatase 114 H (34-104) Units/L Ammonia (16-53) mcmol/L Troponin I 0.03 (< 0.04) ng/mL Serum Total Protein 6.5 (6.4-8.9) g/dL Albumin 3.0 L (3.5-5.7) g/dL Globulin 3.5 (2.4-3.5) g/dL Albumin/Globulin Ratio 0.9 L (1.1-2.2) Ur Specimen Adequacy Urine Color (Yellow) Urine Clarity (Clear) Urine pH (5.0-8.0) pH Units Ur Specific [place] (1.010-1.025) Urine Protein (Neg-Trace) mg/dL Urine Glucose (UA) (Normal) mg/dL Urine Ketones (Negative) mg/dL Urine Blood (Negative) Urine Nitrite (Negative) Urine Bilirubin (Negative) Urine Urobilinogen (Normal) mg/dL Ur Leukocyte Esterase (Negative) Urine Microscopic RBC (0-3) per hpf Urine Microscopic WBC (0-3) per hpf Amorphous Sediment (Few) Urine Bacteria (None-Few) per hpf Ur Culture Indicated? (NO) Ethyl Alcohol < 10 (Less than 10) mg/dL Blood Type A POSITIVE Antibody Screen NEGATIVE 06/28/19 06/28/19 Range/Units 05:06 05:06 WBC (4.3-11.1) K/mcL RBC (4.19-5.50) M/mcL Hgb (12.9-16.9) g/dL Hct (37.5-50.1) % MCV (83.0-100.0) fL MCH (28.0-33.3) pg MCHC (31.6-35.5) g/dL RDW (11.5-14.5) % Plt Count (140-400) K/mcL MPV (9.4-12.4) fL Immature Gran % (0-4) % Seg Neutrophils % % Lymphocytes % % Monocytes % % Eosinophils % % Basophils % % Neutrophils # (1.6-8.9) K/mcL Lymphocytes # (0.6-4.6) K/mcL Monocytes # (0.0-1.3) K/mcL Eosinophils # (0.0-0.6) K/mcL Basophils # (0.0-0.2) K/mcL Platelet Estimate (Normal) Immature Plt Fraction (1.1-6.1) % PT (9.4-12.1) Seconds INR APTT (26.0-36.0) Seconds Sodium (136-145) mEq/L Potassium (3.5-5.1) mEq/L Chloride (98-107) mEq/L Carbon Dioxide (23-29) mEq/L BUN (8-23) mg/dL Creatinine (0.70-1.30) mg/dL Est GFR ( Amer) (> 60) Est GFR (Non-Af Amer) (> 60) BUN/Creatinine Ratio (6-26) Glucose (70-105) mg/dL POC Glucose (70-99) mg/dL Calculated Osmolality (280-300) Lactic Acid 5.0 H* (0.5-2.2) mmol/L Calcium (8.6-10.3) mg/dL Total Bilirubin (0.3-1.0) mg/dL Direct Bilirubin (0.0-0.2) mg/dL Indirect Bilirubin (0.0-1.2) mg/dL AST (13-39) Units/L ALT (7-52) Units/L Alkaline Phosphatase (34-104) Units/L Ammonia 49 (16-53) mcmol/L Troponin I (< 0.04) ng/mL Serum Total Protein (6.4-8.9) g/dL Albumin (3.5-5.7) g/dL Globulin (2.4-3.5) g/dL Albumin/Globulin Ratio (1.1-2.2) Ur Specimen Adequacy Urine Color (Yellow) Urine Clarity (Clear) Urine pH (5.0-8.0) pH Units Ur Specific [place] (1.010-1.025) Urine Protein (Neg-Trace) mg/dL Urine Glucose (UA) (Normal) mg/dL Urine Ketones (Negative) mg/dL Urine Blood (Negative) Urine Nitrite (Negative) Urine Bilirubin (Negative) Urine Urobilinogen (Normal) mg/dL Ur Leukocyte Esterase (Negative) Urine Microscopic RBC (0-3) per hpf Urine Microscopic WBC (0-3) per hpf Amorphous Sediment (Few) Urine Bacteria (None-Few) per hpf Ur Culture Indicated? (NO) Ethyl Alcohol (Less than 10) mg/dL Blood Type Antibody Screen - Radiology Data Radiology results reviewed: Yes I reviewed the patient's radiology results. Chest X-Ray 06/28/19 02:21 IMPRESSION: Chronic findings in the chest without acute airspace disease identified. D/ / Bryan Ferrer / Bryan Ferrer Interpreting Provider: Bryan Ferrer Head CT 06/28/19 02:21 IMPRESSION: Unchanged appearance of the brain without acute CT abnormality identified. D/ / Bryan Ferrer / Bryan Ferrer Interpreting Provider: Bryan Ferrer Abdomen/Pelvis CT 06/28/19 02:22 IMPRESSION: Large amount of rectal stool with mild wall thickening. Cirrhotic liver with splenomegaly and portal hypertension. Bleeding varices not excluded on the basis of this CT. 3.0 cm abdominal aortic aneurysm. 3 year follow-up is advised to document stability. See below. Osseous findings suggestive of ankylosing spondylitis. RECOMMENDATIONS: Recommend follow-up every 3 years. Reference: J Am Kris Radiol 2013;10:789-794. D/ / Wojciech Zabala / Wojciech Zabala Interpreting Provider: Wojciech Zabala - EKG Data EKG #1 EKG attestation: Yes I reviewed and interpreted this EKG. EKG results narrative: EKG obtained at 0 229 ventricular rate of 104, regular rhythm, left axis deviation with no ST segment elevation, depression.
[2019-06-28 03:32] LABS: Basophils % 0.2 %; Eosinophils % 0.2 %; Hematocrit 35.8 % (37.5-50.1); Hemoglobin 12.6 g/dL (12.9-16.9); Immature Granulocytes % 0.7 % (0-4); Immature Platelets 1.3 % (1.1-6.1); Lymphocytes # 0.2 K/mcL (0.6-4.6); Lymphocytes % 2.1 %; Mean Corpuscular HGB Conc 35.2 g/dL (31.6-35.5); Mean Corpuscular Hemoglobin 33.5 pg (28.0-33.3); Mean Corpuscular Volume 95.2 fL (83.0-100.0); Mean Platelet Volume 9.2 fL (9.4-12.4); Monocytes # 0.3 K/mcL (0.0-1.3); Monocytes % 2.9 %; Red Blood Count 3.76 M/mcL (4.19-5.50); Red Cell Distribution Width 13.9 % (11.5-14.5); Segmented Neutrophils % 93.9 %; White Blood Count 8.9 K/mcL (4.3-11.1)
[2019-06-28 03:33] LABS: Neutrophils # 8.4 K/mcL (1.6-8.9); Platelet Count 55 K/mcL (140-400)
[2019-06-28 03:34] LABS: Bilirubin,Urine Small (Negative); Blood,Urine Large (Negative); Clarity,Urine Cloudy (Clear); Color,Urine Brown (Yellow); Glucose,Urine (UA) 100 mg/dL (Normal); Ketones,Urine Trace mg/dL (Negative); Leukocyte Esterase,Urine Trace (Negative); Nitrite,Urine Negative (Negative); Protein,Urine >=300 mg/dL (Neg-Trace); Specific Gravity,Urine >= 1.030 (1.010-1.025); Urobilinogen,Urine Normal (Normal)
[2019-06-28 03:39] LABS: Bacteria,Urine Present per hpf (None-Few); RBC,Urine TNTC per hpf (0-3); WBC,Urine Present per hpf (0-3)
[2019-06-28 03:40] LABS: Amorphous Sediment,Urine Present (Few)
[2019-06-28 03:46] LABS: INR 1.4; Prothrombin Time 15.4 Seconds (9.4-12.1)
[2019-06-28 03:49] LABS: Activated Partial Thrombo Time 30.6 Seconds (26.0-36.0)
[2019-06-28 03:54] LABS: Platelet Estimate Decreased (Normal)
[2019-06-28 03:58] LABS: Alanine Aminotransferase 41 Units/L (7-52); Albumin/Globulin Ratio 0.9 (1.1-2.2); Alkaline Phosphatase 114 Units/L (34-104); Aspartate Amino Transferase 75 Units/L (13-39); BUN/Creatinine Ratio 15 (6-26); Bilirubin,Indirect 2.2 mg/dL (0.0-1.2); Bilirubin,Total 3.2 mg/dL (0.3-1.0); Blood Urea Nitrogen 15 mg/dL (8-23); Calcium 8.9 mg/dL (8.6-10.3); Carbon Dioxide 20 mEq/L (23-29); Chloride 107 mEq/L (98-107); Ethanol < 10 mg/dL (Less than 10); Globulin 3.5 g/dL (2.4-3.5); Glucose 109 mg/dL (70-105); Osmolality,Calculated 291 (280-300); Potassium 3.1 mEq/L (3.5-5.1); Sodium 140 mEq/L (136-145); Total Protein 6.5 g/dL (6.4-8.9); Troponin I 0.03 ng/mL (< 0.04); eGFR For African Americans > 60 (> 60); eGFR For Non-African Americans > 60 (> 60)
[2019-06-28] MEDS ORDERED: 0.9 % Sodium Chloride 500 ML IVC ONE (04:07)
[2019-06-28] MEDS ORDERED: Potassium Chloride Elixir 20 MEQ/15 ML UDC PO ONE (04:25)
[2019-06-28] MEDS ORDERED: cefTRIAXone 1,000 MG in Water for inj. (sterile) 10 ML IVP ONE (04:29)
[2019-06-28] MEDS: Pantoprazole 40 MG in 0.9 % Sodium Chloride Mini Bag 100 ML IVC SCH ×3 (05:24→20:57)
[2019-06-28] MEDS ORDERED: MetroNIDAZOLE 500 MG/100 ML 500 MG/100 ML BAG IVPB ONE (05:26)
--- NOTE | 2019-06-28 05:27 | Emergency Department Note ---
Disposition Clinical Impression: Generalized weakness, Thrombocytopenia, Colitis, Upper GI bleeding, Hematemesis, Altered mental status, Hypokalemia Disposition: Admitted As Inpatient Condition: Serious [facility] - Time of Disposition: 05:31 General Adult HPI - General Chief complaint: ED Nausea/Vomiting/Diarrhea Stated complaint: vomitting bld Time Seen by Provider: 06/28/19 02:19 Source: patient, family, EMS Limitations: altered mental status (History of dementia) Nursing Notes Reviewed: Yes Vital Signs Reviewed: Yes - History of Present Illness Pain Scale: 0 - Related Data Home Medications Medication Instructions Recorded Confirmed Calcium Carbonate 650 mg PO DAILY 07/28/16 05/19/19 DiphenhydraMINE [Benadryl] 2 cap PO HS 07/28/16 04/25/19 Ergocalciferol (VITAMIN D2) 1,200 unit PO DAILY 07/28/16 05/19/19 [Vitamin D] Omeprazole [PriLOSEC] 20 mg PO DAILY 07/28/16 05/19/19 Polyethylene Glycol 3350 [MiraLAX] 17 gm PO DAILY 07/28/16 05/19/19 Cyclobenzaprine HCl 5 mg PO DAILY 04/21/17 05/19/19 Albuterol Neb 90 IH PRN 05/19/19 Cyanocobalamin (B-12) 1,000 PO DAILY 05/19/19 FentaNYL PATCH [Duragesic] 25 mcg TD Q48H 05/19/19 05/19/19 GuaiFENesin Liq 100 PO TID 05/19/19 Ondansetron 4 mg PO DAILY PRN 05/19/19 OxyCODONE Immed Rel [Roxicodone 15 30 mg PO Q6HR PRN 05/19/19 05/19/19 MG] Potassium Chloride 10 meq PO DAILY 05/19/19 FentaNYL PATCH [Duragesic] 12 mcg TD Q48H 06/28/19 06/28/19 Previous Rx's Medication Instructions Recorded Aspirin Enteric Coated [Aspirin EC] 81 mg PO DAILY #30 tablet. 04/29/19 Carbidopa/Levodopa 25/100 [Sinemet 1 each PO TID #90 tablet 04/29/19 25] Metoprolol [Lopressor] 25 mg PO BID tablet 04/29/19 Tamsulosin [Flomax] 0.4 mg PO DAILY #30 capsule 04/29/19 amLODIPine [Norvasc] 10 mg PO DAILY tablet 04/29/19 Allergies Allergy/AdvReac Type Severity Reaction Status Date / Time diazepam [From Valium] Allergy Unknown Unknown Verified 04/25/19 22:38 latex Allergy Unknown Unknown Verified 04/25/19 22:38 methadone [Methadone] Allergy Unknown Unknown Verified 04/25/19 22:38 morphine Allergy Unknown Itching Verified 04/25/19 22:38 Past Medical History - Past Medical History Medical history: Reports: cirrhosis, dementia, GERD, hypertension, RA, other Surgical history: Reports: cholecystectomy, orthopedic, other Psychiatric history: Reports: no psych history - Social History Smoking Status: Former smoker Smokeless Tobacco Status: No Alcohol use: Reports: none Drug use: Reports: none Physical Exam - General General appearance: in no apparent distress Course Vital Signs Temperature 99.9 F H 06/28/19 02:21 Pulse Rate 101 06/28/19 02:21 Respiratory Rate 18 06/28/19 02:21 Blood Pressure 141/67 06/28/19 02:21 O2 Sat by Pulse Oximetry 99 06/28/19 02:21 Temperature 99.9 F H 06/28/19 02:21 Pulse Rate 94 06/28/19 04:00 Respiratory Rate 20 06/28/19 04:00 Blood Pressure 121/64 06/28/19 04:00 O2 Sat by Pulse Oximetry 98 06/28/19 04:00 Oxygen Delivery Oxygen Delivery Room Air Medical Decision Making - Lab Data Result diagrams: 06/28/19 03:24 06/28/19 03:24 Lab Results 06/28/19 06/28/19 06/28/19 Range/Units 02:22 02:47 03:24 WBC 8.9 (4.3-11.1) K/mcL RBC 3.76 L (4.19-5.50) M/mcL Hgb 12.6 L (12.9-16.9) g/dL Hct 35.8 L (37.5-50.1) % MCV 95.2 (83.0-100.0) fL MCH 33.5 H (28.0-33.3) pg MCHC 35.2 (31.6-35.5) g/dL RDW 13.9 (11.5-14.5) % Plt Count 55 L (140-400) K/mcL MPV 9.2 L (9.4-12.4) fL Immature Gran % 0.7 (0-4) % Seg Neutrophils % 93.9 % Lymphocytes % 2.1 % Monocytes % 2.9 % Eosinophils % 0.2 % Basophils % 0.2 % Neutrophils # 8.4 (1.6-8.9) K/mcL Lymphocytes # 0.2 L (0.6-4.6) K/mcL Monocytes # 0.3 (0.0-1.3) K/mcL Eosinophils # 0.0 (0.0-0.6) K/mcL Basophils # 0.0 (0.0-0.2) K/mcL Platelet Estimate Decreased L (Normal) Immature Plt Fraction 1.3 (1.1-6.1) % PT (9.4-12.1) Seconds INR APTT (26.0-36.0) Seconds Sodium (136-145) mEq/L Potassium (3.5-5.1) mEq/L Chloride (98-107) mEq/L Carbon Dioxide (23-29) mEq/L BUN (8-23) mg/dL Creatinine (0.70-1.30) mg/dL Est GFR ( Amer) (> 60) Est GFR (Non-Af Amer) (> 60) BUN/Creatinine Ratio (6-26) Glucose (70-105) mg/dL POC Glucose 101 H (70-99) mg/dL Calculated Osmolality (280-300) Calcium (8.6-10.3) mg/dL Total Bilirubin (0.3-1.0) mg/dL Direct Bilirubin (0.0-0.2) mg/dL Indirect Bilirubin (0.0-1.2) mg/dL AST (13-39) Units/L ALT (7-52) Units/L Alkaline Phosphatase (34-104) Units/L Troponin I (< 0.04) ng/mL Serum Total Protein (6.4-8.9) g/dL Albumin (3.5-5.7) g/dL Globulin (2.4-3.5) g/dL Albumin/Globulin Ratio (1.1-2.2) Ur Specimen Adequacy See below A Urine Color Brown (Yellow) Urine Clarity Cloudy A (Clear) Urine pH 6.0 (5.0-8.0) pH Units Ur Specific [place] >= 1.030 H (1.010-1.025) Urine Protein >=300 H (Neg-Trace) mg/dL Urine Glucose (UA) 100 H (Normal) mg/dL Urine Ketones Trace H (Negative) mg/dL Urine Blood Large H (Negative) Urine Nitrite Negative (Negative) Urine Bilirubin Small H (Negative) Urine Urobilinogen Normal (Normal) mg/dL Ur Leukocyte Esterase Trace H (Negative) Urine Microscopic RBC TNTC H (0-3) per hpf Urine Microscopic WBC Present (0-3) per hpf Amorphous Sediment Present (Few) Urine Bacteria Present (None-Few) per hpf Ur Culture Indicated? YES A (NO) Ethyl Alcohol (Less than 10) mg/dL Blood Type Antibody Screen 06/28/19 06/28/19 06/28/19 Range/Units 03:24 03:24 03:24 WBC (4.3-11.1) K/mcL RBC (4.19-5.50) M/mcL Hgb (12.9-16.9) g/dL Hct (37.5-50.1) % MCV (83.0-100.0) fL MCH (28.0-33.3) pg MCHC (31.6-35.5) g/dL RDW (11.5-14.5) % Plt Count (140-400) K/mcL MPV (9.4-12.4) fL Immature Gran % (0-4) % Seg Neutrophils % % Lymphocytes % % Monocytes % % Eosinophils % % Basophils % % Neutrophils # (1.6-8.9) K/mcL Lymphocytes # (0.6-4.6) K/mcL Monocytes # (0.0-1.3) K/mcL Eosinophils # (0.0-0.6) K/mcL Basophils # (0.0-0.2) K/mcL Platelet Estimate (Normal) Immature Plt Fraction (1.1-6.1) % PT 15.4 H (9.4-12.1) Seconds INR 1.4 APTT 30.6 (26.0-36.0) Seconds Sodium 140 (136-145) mEq/L Potassium 3.1 L (3.5-5.1) mEq/L Chloride 107 (98-107) mEq/L Carbon Dioxide 20 L (23-29) mEq/L BUN 15 (8-23) mg/dL Creatinine 0.97 (0.70-1.30) mg/dL Est GFR ( Amer) > 60 (> 60) Est GFR (Non-Af Amer) > 60 (> 60) BUN/Creatinine Ratio 15 (6-26) Glucose 109 H (70-105) mg/dL POC Glucose (70-99) mg/dL Calculated Osmolality 291 (280-300) Calcium 8.9 (8.6-10.3) mg/dL Total Bilirubin 3.2 H (0.3-1.0) mg/dL Direct Bilirubin 1.0 H (0.0-0.2) mg/dL Indirect Bilirubin 2.2 H (0.0-1.2) mg/dL AST 75 H (13-39) Units/L ALT 41 (7-52) Units/L Alkaline Phosphatase 114 H (34-104) Units/L Troponin I 0.03 (< 0.04) ng/mL Serum Total Protein 6.5 (6.4-8.9) g/dL Albumin 3.0 L (3.5-5.7) g/dL Globulin 3.5 (2.4-3.5) g/dL Albumin/Globulin Ratio 0.9 L (1.1-2.2) Ur Specimen Adequacy Urine Color (Yellow) Urine Clarity (Clear) Urine pH (5.0-8.0) pH Units Ur Specific [place] (1.010-1.025) Urine Protein (Neg-Trace) mg/dL Urine Glucose (UA) (Normal) mg/dL Urine Ketones (Negative) mg/dL Urine Blood (Negative) Urine Nitrite (Negative) Urine Bilirubin (Negative) Urine Urobilinogen (Normal) mg/dL Ur Leukocyte Esterase (Negative) Urine Microscopic RBC (0-3) per hpf Urine Microscopic WBC (0-3) per hpf Amorphous Sediment (Few) Urine Bacteria (None-Few) per hpf Ur Culture Indicated? (NO) Ethyl Alcohol < 10 (Less than 10) mg/dL Blood Type A POSITIVE Antibody Screen NEGATIVE Attestation Statement - Attestation Attestation: I have seen this patient with the resident physician, I have personally evaluated this patient. I had reviewed the chart and document dictation by the resident physician and aM in agreement with the information documented by the resident physician. Please see documentation by the resident physician for complete chart including past medical history, family medical history, review of systems, current history and physical and laboratory and imaging studies. I was present for all procedures, provided direct supervision for all procedu res, was present for the entirety of all procedures and provided direct guidance during the procedures. Please see documentation by the resident physician for any procedures performed. I have reviewed all interpretations of EKGs, and reviewed all EKGs performed on patient's as well. I have also reviewed reports of imaging as provided by radiology. Patient presented to the emergency Department with reports from paramedics that they were called for vomiting blood as well as blood in his urine and decreased level of consciousness and change in mental status. They do not know a lot about his past medical history and report the family is on their way. The paramedics report that his vital signs were within acceptable limits en route to the hospital he reportedly felt hot to touch did not check his temperature. They did not check a blood sugar and transported. Upon arrival. The patient is awake and alert, he is confused to location and year but he tells his name seems to endorse nausea seems to deny any acute pain was a very poor historian seems to deny headache neck pain chest pain or shortness of breath denies any fevers does endorse nausea and vomiting. Seems to deny diarrhea or urinary changes. He does have a condom catheter in place. There was no reported trauma. Patient was in the hospital with his workup initiated, IVs established. Reviewing his chart, there is some question concerned that he may have a history of cirrhosis as well as his history of dementia and multiple other medical problems, no documented history of esophageal varices that we can uncover. Patient had been in the emergency department, for a while with the eventual arrival of the family, they report that he has just been more out of it today more confused today he did start throwing up and then had one episode of bright red emesis followed by some darker-appearing emesis. No fevers, they noted what looked to be potentially blood within his urine as well. They report that he does not have a known history of esophageal varices that they are aware of but state that this has been discussed with them in the past and he was supposed to undergo any evaluation for this. Patient has had no reported fevers at home according to them. Upon arrival, he had a heart rate of 101 low-grade temperature of 99.9 other vital signs were within acceptable limits. He was given IV fluids IV nausea medication and IV proton pump inhibitor. Secondary to concerns about the potential risk of esophageal varices, with low- grade temperature elevation of 99.9 and tachycardia, he was given IV Rocephin Secondary to concerns for mental status changes, head CT was ordered CT of the abdomen and pelvis was ordered with IV contrast for further evaluation of nausea vomiting with reported hematemesis although he had no episodes of hematemesis here. On exam, a question appeared slightly jaundiced, no significant pallor no active vomiting heart was regular 2/6 systolic murmur no rubs or gallops lungs are clear abdomen was soft nondistended seemingly nontender. Skin was warm dry without rash or petechiae as above, question some yellow discoloration especially to the face. Trace lower extremity edema bilaterally. CBC showed mild leukocytosis, stable hemoglobin from previous. Chronic thrombocytopenia 55,000. This is slightly decreased from baseline. Renal panel was within acceptable limits, apart from a slightly low potassium which is being supplemented. Total bilirubin is 3.2 which is stable from previous. Transaminases lipase are within acceptable limits. Head CT and chest x-rays as interpreted by radiology showed no acute findings. CT of the abdomen and pelvisIMPRESSION: Large amount of rectal stool with mild wall thickening. Cirrhotic liver with splenomegaly and portal hypertension. Bleeding varices not excluded on the basis of this CT. 3.0 cm abdominal aortic aneurysm. 3 year follow-up is advised to document stability. See below. Osseous findings suggestive of ankylosing spondylitis. RECOMMENDATIONS: Recommend follow-up every [address] scan findings of potential colitis, we also added Flagyl to his management. Surgery was contacted to discuss consideration of further management with octreotide, secondary to CT scan findings which cannot exclude esophageal varices. They do not feel that this is indicated, we will provide consultation and consideration of endoscopy as an inpatient. Patient will be admitted to the hospitalist service for further evaluation and management. Total critical care time as provided by myself excluding any procedures performed in evaluation and management of altered mental status upper GI bleed hypokalemia nausea or vomiting was 35 minutes. Family was updated on all findings and patient was admitted to the hospital for further evaluation and management.
[2019-06-28] MEDS ORDERED: 0.9 % Sodium Chloride 2,000 ML ONE (05:36)
[2019-06-28] MEDS: 0.9 % Sodium Chloride 1,000 ML IVC SCH ×2 (05:40→06:07)
[2019-06-28] MEDS ORDERED: Octreotide 50 MCG/ML INJ IVP ONE (06:11)
[2019-06-28] MEDS: Octreotide 400 MCG in 0.9 % Sodium Chloride 100 ML IVC SCH ×2 (07:16→22:31)
--- NOTE | 2019-06-28 07:53 | AcuteCare Surgery Consult Note ---
<Patsy Angeles - Last Filed: 06/28/19 08:52> Date of Encounter: 06/28/19 Time of Encounter: 07:53 Assessment and Plan (1) Hematemesis Current Visit: Yes Status: Acute Her Jolie patient was undergoing workup for recurrent vomiting alternating coffee ground emesis and [facility]. She states he did have an EGD/colonoscopy "years ago," but she cannot remember the date or the results. Bleeding esophageal varices cannot be ruled out on CT. Patient with portal hypertension. Per [facility] was beginning work-up to r/o varicies. The patient is recommended to undergo EGD this a.m. Recommendations, risks, and benefits were expressly reviewed with the patient's via telephone call ([phone]) and she is agreeable to proceed. A signed consent is placed on the hard chart. NPO Further recommendations pending EGD Cares per primary team (reviewed with Dr. Thurston reports [facility] stopped [facility]) Qualifiers: Nausea presence: unspecified Qualified Code(s): K92.0 - Hematemesis History of Present Illness Consult date: 06/28/19 (Dr. Dedrick Freitas) Reason for consult: endoscopy Requesting physician: Junito Mckeon History of present illness: Acute Care Surgery has been consulted for recommendations regarding hematemesis Patient's past medical, surgical, and social history has been reviewed per the chart and with patient's Jolie via telephone call. Celestine is a 74-year-old male with a history of dementia, decompensated cirrhosis, hemorrhagic CVA, rheumatoid arthritis and ankylosing spondylosis, status post cervical fusion, and per previously there was concern for Parkinson's for which the patient was started on sentiment but she states this has been rolled out in the Sinemet was stopped approximately 1.5 weeks ago. His reports that he has been tobacco and alcohol reefer greater than 30 years. Patient is a poor historian. He is able to tell me his name, birthdate, and location however is unable to recall is presenting symptoms or much of his medical history. Per record review and discussion with he presented to the emergency department on 06/28/2019 following an episode of bright red blood and then dark blood x1 at home. He denies abdominal pain. He does not answer any other review of system questions. His clinical course thus far has included a CT of the abdomen and pelvis which noted a large amount of stool throughout the:, a few fluid filled loops of bowel in the abdomen, no free air or fluid, cirrhotic liver with splenomegaly and portal hypertension, bleeding varices not excluded, laboratory studies which noted a hemoglobin of 12.6, lactic acid of 5.0, elevated liver functions, and he has been fluid resuscitated with 2 L normal saline, started octreotide, and PPI. Past Med Surg Social Fam HX - Past Medical History Source: old records reviewed, obtained from family Medical history: cirrhosis, dementia, GERD, hypertension, RA, other Additional medical history: spinal stenosis, chronic back pain, ankylosing spondylosis, hemorrhagic stroke Psychiatric history: no psych history - Past Surgical History Surgical History: cholecystectomy, orthopedic, other Additional surgical history: back surgery - Social History Smoking Status: Former smoker Smokeless Tobacco Status: No Alcohol use: none (Last used 30 years ago) Drug use: none Occupational status: retired Current living situation: With Family - Family History Mother Living Status: Hx Family GI Disorders: Yes (cirrhosis) Father Living Status: Medications and Allergies Calcium Carbonate 650 mg PO DAILY 07/28/16 [History] DiphenhydraMINE [Benadryl] 2 cap PO HS 07/28/16 [History] Ergocalciferol (VITAMIN D2) [Vitamin D] 1,200 unit PO DAILY 07/28/16 [History] Omeprazole [PriLOSEC] 20 mg PO DAILY 07/28/16 [History] Polyethylene Glycol 3350 [MiraLAX] 17 gm PO DAILY 07/28/16 [History] Cyclobenzaprine HCl 5 mg PO DAILY 04/21/17 [History] Aspirin Enteric Coated [Aspirin EC] 81 mg PO DAILY #30 tablet. 04/29/19 [Rx] Carbidopa/Levodopa 25/100 [Sinemet 25/100] 1 each PO TID #90 tablet 04/29/19 [Rx] Metoprolol [Lopressor] 25 mg PO BID tablet 04/29/19 [Rx] Tamsulosin [Flomax] 0.4 mg PO DAILY #30 capsule 04/29/19 [Rx] amLODIPine [Norvasc] 10 mg PO DAILY tablet 04/29/19 [Rx] Albuterol Neb 90 IH PRN 05/19/19 [History] Cyanocobalamin (B-12) 1,000 mg PO DAILY 05/19/19 [History] GuaiFENesin Liq 100 mg PO TID 05/19/19 [History] Ondansetron 4 mg PO DAILY PRN 05/19/19 [History] OxyCODONE Immed Rel [Roxicodone 15 MG] 30 mg PO Q6HR PRN 05/19/19 [History] Potassium Chloride 10 meq PO DAILY 05/19/19 [History] FentaNYL PATCH [Duragesic] 12 mcg TD Q48H 06/28/19 [History] Allergy/AdvReac Type Severity Reaction Status Date / Time diazepam [From Valium] Allergy Unknown Unknown Verified 04/25/19 22:38 latex Allergy Unknown Unknown Verified 04/25/19 22:38 methadone [Methadone] Allergy Unknown Unknown Verified 04/25/19 22:38 morphine Allergy Unknown Itching Verified 04/25/19 22:38 Review of Systems ROS unobtainable: due to mental status All systems PM: The remainder of the systems were reviewed and are negative General Surgery Exam Initial Vital Signs Temp Pulse Resp BP Pulse Ox 99.9 F H 101 18 141/67 99 06/28/19 02:21 06/28/19 02:21 06/28/19 02:21 06/28/19 02:21 06/28/19 02:21 - General physical appearance no distress, no pain - ENT dry mucosa, atraumatic, normocephalic - Neck trachea midline - Respiratory normal expansion, normal respiratory effort - Cardiovascular Cardiovascular exam: Present: RRR, murmurs, distant heart sounds - Abdomen Abdomen general surgery: Present: bowel sounds present, soft, non tender - Integumentary Integumentary general surgery: Present: warm and dry, other (skin tear right arm) - Neurologic Present: normal sensation - Musculoskeletal Present: normal posture - Psychiatric Psychiatric general surgery: Present: oriented to person, oriented to place Exam Initial Vital Signs Temp Pulse Resp BP Pulse Ox 99.9 F H 101 18 141/67 99 06/28/19 02:21 06/28/19 02:21 06/28/19 02:21 06/28/19 02:21 06/28/19 02:21 Results - Labs 06/28/19 03:24 06/28/19 03:24 Abnormal lab results RBC 3.76 M/mcL (4.19-5.50) L 06/28/19 03:24 Hgb 12.6 g/dL (12.9-16.9) L 06/28/19 03:24 Hct 35.8 % (37.5-50.1) L 06/28/19 03:24 MCH 33.5 pg (28.0-33.3) H 06/28/19 03:24 Plt Count 55 K/mcL (140-400) L 06/28/19 03:24 MPV 9.2 fL (9.4-12.4) L 06/28/19 03:24 Lymphocytes # 0.2 K/mcL (0.6-4.6) L 06/28/19 03:24 Platelet Estimate Decreased (Normal) L 06/28/19 03:24 PT 15.4 Seconds (9.4-12.1) H 06/28/19 03:24 Potassium 3.1 mEq/L (3.5-5.1) L 06/28/19 03:24 Carbon Dioxide 20 mEq/L (23-29) L 06/28/19 03:24 Glucose 109 mg/dL (70-105) H 06/28/19 03:24 POC Glucose 101 mg/dL (70-99) H 06/28/19 02:22 Lactic Acid 5.0 mmol/L (0.5-2.2) H* 06/28/19 05:06 Total Bilirubin 3.2 mg/dL (0.3-1.0) H 06/28/19 03:24 Direct Bilirubin 1.0 mg/dL (0.0-0.2) H 06/28/19 03:24 Indirect Bilirubin 2.2 mg/dL (0.0-1.2) H 06/28/19 03:24 AST 75 Units/L (13-39) H 06/28/19 03:24 Alkaline Phosphatase 114 Units/L (34-104) H 06/28/19 03:24 Albumin 3.0 g/dL (3.5-5.7) L 06/28/19 03:24 Albumin/Globulin Ratio 0.9 (1.1-2.2) L 06/28/19 03:24 Ur Specimen Adequacy See below A 06/28/19 02:47 Urine Clarity Cloudy (Clear) A 06/28/19 02:47 Ur Specific [place] >= 1.030 (1.010-1.025) H 06/28/19 02:47 Urine Protein >=300 mg/dL (Neg-Trace) H 06/28/19 02:47 Urine Glucose (UA) 100 mg/dL (Normal) H 06/28/19 02:47 Urine Ketones Trace mg/dL (Negative) H 06/28/19 02:47 Urine Blood Large (Negative) H 06/28/19 02:47 Urine Bilirubin Small (Negative) H 06/28/19 02:47 Ur Leukocyte Esterase Trace (Negative) H 06/28/19 02:47 Urine Microscopic RBC TNTC per hpf (0-3) H 06/28/19 02:47 Ur Culture Indicated? YES (NO) A 06/28/19 02:47 Diabetes panel 06/28/19 Range/Units 03:24 Sodium 140 (136-145) mEq/L Potassium 3.1 L (3.5-5.1) mEq/L Chloride 107 (98-107) mEq/L Carbon Dioxide 20 L (23-29) mEq/L BUN 15 (8-23) mg/dL Creatinine 0.97 (0.70-1.30) mg/dL Glucose 109 H (70-105) mg/dL Calcium 8.9 (8.6-10.3) mg/dL AST 75 H (13-39) Units/L ALT 41 (7-52) Units/L Alkaline Phosphatase 114 H (34-104) Units/L Albumin 3.0 L (3.5-5.7) g/dL Calcium panel 06/28/19 Range/Units 03:24 Calcium 8.9 (8.6-10.3) mg/dL Albumin 3.0 L (3.5-5.7) g/dL Pituitary panel 06/28/19 Range/Units 03:24 Sodium 140 (136-145) mEq/L Potassium 3.1 L (3.5-5.1) mEq/L Chloride 107 (98-107) mEq/L Carbon Dioxide 20 L (23-29) mEq/L BUN 15 (8-23) mg/dL Creatinine 0.97 (0.70-1.30) mg/dL Glucose 109 H (70-105) mg/dL Calcium 8.9 (8.6-10.3) mg/dL Adrenal panel 06/28/19 Range/Units 03:24 Sodium 140 (136-145) mEq/L Potassium 3.1 L (3.5-5.1) mEq/L Chloride 107 (98-107) mEq/L Carbon Dioxide 20 L (23-29) mEq/L BUN 15 (8-23) mg/dL Creatinine 0.97 (0.70-1.30) mg/dL Glucose 109 H (70-105) mg/dL Calcium 8.9 (8.6-10.3) mg/dL Total Bilirubin 3.2 H (0.3-1.0) mg/dL AST 75 H (13-39) Units/L ALT 41 (7-52) Units/L Alkaline Phosphatase 114 H (34-104) Units/L Albumin 3.0 L (3.5-5.7) g/dL All other labs normal. - Imaging CT scan - abdomen: report reviewed CT scan - pelvis: report reviewed Consult Discharge Plan - Plan [facility]errals: [facility]Primary Care Provider[facility] - <Dedrick Freitas - Last Filed: 06/28/19 11:30> Date of Encounter: 06/28/19 Review of Systems All systems PM: The remainder of the systems were reviewed and are negative General Surgery Exam Initial Vital Signs Temp Pulse Resp BP Pulse Ox 99.9 F H 101 18 141/67 99 06/28/19 02:21 06/28/19 02:21 06/28/19 02:21 06/28/19 02:21 06/28/19 02:21 Exam Initial Vital Signs Temp Pulse Resp BP Pulse Ox 99.9 F H 101 18 141/67 99 06/28/19 02:21 06/28/19 02:21 06/28/19 02:21 06/28/19 02:21 06/28/19 02:21 Results - Labs 06/28/19 03:24 06/28/19 03:24 Abnormal lab results RBC 3.76 M/mcL (4.19-5.50) L 06/28/19 03:24 Hgb 12.6 g/dL (12.9-16.9) L 06/28/19 03:24 Hct 35.8 % (37.5-50.1) L 06/28/19 03:24 MCH 33.5 pg (28.0-33.3) H 06/28/19 03:24 Plt Count 55 K/mcL (140-400) L 06/28/19 03:24 MPV 9.2 fL (9.4-12.4) L 06/28/19 03:24 Lymphocytes # 0.2 K/mcL (0.6-4.6) L 06/28/19 03:24 Platelet Estimate Decreased (Normal) L 06/28/19 03:24 PT 15.4 Seconds (9.4-12.1) H 06/28/19 03:24 Potassium 3.1 mEq/L (3.5-5.1) L 06/28/19 03:24 Carbon Dioxide 20 mEq/L (23-29) L 06/28/19 03:24 Glucose 109 mg/dL (70-105) H 06/28/19 03:24 POC Glucose 101 mg/dL (70-99) H 06/28/19 02:22 Lactic Acid 4.6 mmol/L (0.5-2.2) H* 06/28/19 08:40 Total Bilirubin 3.2 mg/dL (0.3-1.0) H 06/28/19 03:24 Direct Bilirubin 1.0 mg/dL (0.0-0.2) H 06/28/19 03:24 Indirect Bilirubin 2.2 mg/dL (0.0-1.2) H 06/28/19 03:24 AST 75 Units/L (13-39) H 06/28/19 03:24 Alkaline Phosphatase 114 Units/L (34-104) H 06/28/19 03:24 Albumin 3.0 g/dL (3.5-5.7) L 06/28/19 03:24 Albumin/Globulin Ratio 0.9 (1.1-2.2) L 06/28/19 03:24 Ur Specimen Adequacy See below A 06/28/19 02:47 Urine Clarity Cloudy (Clear) A 06/28/19 02:47 Ur Specific [place] >= 1.030 (1.010-1.025) H 06/28/19 02:47 Urine Protein >=300 mg/dL (Neg-Trace) H 06/28/19 02:47 Urine Glucose (UA) 100 mg/dL (Normal) H 06/28/19 02:47 Urine Ketones Trace mg/dL (Negative) H 06/28/19 02:47 Urine Blood Large (Negative) H 06/28/19 02:47 Urine Bilirubin Small (Negative) H 06/28/19 02:47 Ur Leukocyte Esterase Trace (Negative) H 06/28/19 02:47 Urine Microscopic RBC TNTC per hpf (0-3) H 06/28/19 02:47 Ur Culture Indicated? YES (NO) A 06/28/19 02:47 Diabetes panel 06/28/19 Range/Units 03:24 Sodium 140 (136-145) mEq/L Potassium 3.1 L (3.5-5.1) mEq/L Chloride 107 (98-107) mEq/L Carbon Dioxide 20 L (23-29) mEq/L BUN 15 (8-23) mg/dL Creatinine 0.97 (0.70-1.30) mg/dL Glucose 109 H (70-105) mg/dL Calcium 8.9 (8.6-10.3) mg/dL AST 75 H (13-39) Units/L ALT 41 (7-52) Units/L Alkaline Phosphatase 114 H (34-104) Units/L Albumin 3.0 L (3.5-5.7) g/dL Calcium panel 06/28/19 Range/Units 03:24 Calcium 8.9 (8.6-10.3) mg/dL Albumin 3.0 L (3.5-5.7) g/dL Pituitary panel 06/28/19 Range/Units 03:24 Sodium 140 (136-145) mEq/L Potassium 3.1 L (3.5-5.1) mEq/L Chloride 107 (98-107) mEq/L Carbon Dioxide 20 L (23-29) mEq/L BUN 15 (8-23) mg/dL Creatinine 0.97 (0.70-1.30) mg/dL Glucose 109 H (70-105) mg/dL Calcium 8.9 (8.6-10.3) mg/dL Adrenal panel 06/28/19 Range/Units 03:24 Sodium 140 (136-145) mEq/L Potassium 3.1 L (3.5-5.1) mEq/L Chloride 107 (98-107) mEq/L Carbon Dioxide 20 L (23-29) mEq/L BUN 15 (8-23) mg/dL Creatinine 0.97 (0.70-1.30) mg/dL Glucose 109 H (70-105) mg/dL Calcium 8.9 (8.6-10.3) mg/dL Total Bilirubin 3.2 H (0.3-1.0) mg/dL AST 75 H (13-39) Units/L ALT 41 (7-52) Units/L Alkaline Phosphatase 114 H (34-104) Units/L Albumin 3.0 L (3.5-5.7) g/dL All other labs normal. - Attending Attestation I have personally performed a face to face evaluation on this patient. I have reviewed and agree with the care plan. History and Exam by me shows: The patient is seen and evaluated on morning rounds with the acute care surgery team. He has had an episode of hematemesis. He is undergoing workup at the [facility] and likely has portal hypertension. We will plan upper endoscopy for diagnosis later today. Dedrick Freitas MD FACS
[2019-06-28] MEDS ORDERED: Naloxone 0.4 MG/ML INJ IVP PRN (08:02)
[2019-06-28] MEDS ORDERED: Ondansetron 4 MG/2 ML VIAL IVP PRN (08:02)
--- NOTE | 2019-06-28 08:02 | Internal Med History&Physical ---
Date of Encounter: 06/28/19 Time of Encounter: 07:44 Internal Medicine - H&P: HPI Chief complaint: Hematemesis Admitted From: Emergency Dept History of present illness: Celestine Puente is a 74 M w hx dementia, hard of hearing, decompensated cirrhosis, hemorrhagic CVA, RA and Ank Spondylosis, OA s/p cervical fusion, HTN, GERD, who p/w hematemesis. Occurred once, bright red blood. Patient has some confusion and poor memory and is unaccompanied, and thus history is obtained from chart review. "Per patient's family, just prior to arrival, the patient was in bed, woke up with significant abdominal pain and nausea and had an significant episode of hematemesis, described to be bright red blood that went all over the sheets, they then stated that he was having difficulty with identifying their names, did not recognize them and that he seemed altered and confused." "Per EMS, the patient was alert and oriented on their arrival, he had no further episodes of hematemesis in route, he is not on a blood thinner that the patient or family is aware of." "Per his he is also been having some lower abdominal pain, which she describes to be suprapubic in nature, usually complaining of this for the past few days, and then today he had one episode of hematuria, and she became concerned. Patient does wear a condom catheter secondary to urinary incontinence." During my interview, the patient is unable to recall hematemesis, nor tell me why he's in the hospital, nor where he is, or why he wears a catheter. He does think he remembers coughing some this morning, but otherwise denies fever, chest pain, SOB, abd pain. In the ED, pt vitals T 101, HR 101, RR 18-20, SBP 140 then dropped to 100, satting 98+% on 2L. Labs notable for WBC 9, Hb 12.5, Plt 55, INR 1.4, K 3.1, CO2 20, Cr 1 (baseline 0.7), lactate 5, Tbili 3.2 IBili 2.2, albumin 3.0. CXR unremarkable. CT head without acute changes. CT a/p showing known cirrhosis w portal HTN and splenomegaly as well as AAA 3 cm. Given 2L fluid, rocephin, and potassium; was started on PPI and Octreotide gtt; type&screened; the case discussed w Juan medical reception for endoscopy Dr Freitas; and admitted. Past medical, surgical, social, and family histories reviewed and updated as below. Past Med Surg Social Fam HX - Past Medical History Medical history: cirrhosis, dementia, GERD, hypertension, RA, other Additional medical history: spinal stenosis, chronic back pain, ankylosing spondylosis, hemorrhagic stroke Psychiatric history: no psych history - Past Surgical History Surgical History: cholecystectomy, orthopedic, other Additional surgical history: back surgery - Social History Smoking Status: Former smoker Smokeless Tobacco Status: No Alcohol use: none Drug use: none - Family History Mother Living Status: Hx Family GI Disorders: Yes (cirrhosis) Father Living Status: Internal Medicine - H&P: Meds Calcium Carbonate 650 mg PO DAILY 07/28/16 [History] DiphenhydraMINE [Benadryl] 2 cap PO HS 07/28/16 [History] Ergocalciferol (VITAMIN D2) [Vitamin D] 1,200 unit PO DAILY 07/28/16 [History] Omeprazole [PriLOSEC] 20 mg PO DAILY 07/28/16 [History] Polyethylene Glycol 3350 [MiraLAX] 17 gm PO DAILY 07/28/16 [History] Cyclobenzaprine HCl 5 mg PO DAILY 04/21/17 [History] Aspirin Enteric Coated [Aspirin EC] 81 mg PO DAILY #30 tablet. 04/29/19 [Rx] Carbidopa/Levodopa 25/100 [Sinemet 25/100] 1 each PO TID #90 tablet 04/29/19 [Rx] Metoprolol [Lopressor] 25 mg PO BID tablet 04/29/19 [Rx] Tamsulosin [Flomax] 0.4 mg PO DAILY #30 capsule 04/29/19 [Rx] amLODIPine [Norvasc] 10 mg PO DAILY tablet 04/29/19 [Rx] Albuterol Neb 90 IH PRN 05/19/19 [History] Cyanocobalamin (B-12) 1,000 mg PO DAILY 05/19/19 [History] GuaiFENesin Liq 100 mg PO TID 05/19/19 [History] Ondansetron 4 mg PO DAILY PRN 05/19/19 [History] OxyCODONE Immed Rel [Roxicodone 15 MG] 30 mg PO Q6HR PRN 05/19/19 [History] Potassium Chloride 10 meq PO DAILY 05/19/19 [History] FentaNYL PATCH [Duragesic] 12 mcg TD Q48H 06/28/19 [History] Allergy/AdvReac Type Severity Reaction Status Date / Time diazepam [From Valium] Allergy Unknown Unknown Verified 04/25/19 22:38 latex Allergy Unknown Unknown Verified 04/25/19 22:38 methadone [Methadone] Allergy Unknown Unknown Verified 04/25/19 22:38 morphine Allergy Unknown Itching Verified 04/25/19 22:38 All Systems PM: A 10-system review of systems was performed and is negative for pertinent findings except as documented above in the HPI. - Constitutional Vitals: Temp Pulse Resp BP Pulse Ox 100.9 F H 92 16 136/62 98 06/28/19 05:45 06/28/19 07:15 06/28/19 07:15 06/28/19 07:15 06/28/19 07:15 Exam: General: NAD, moderate eye contact, chronically ill appearing, blank stare, webbed neck Head: Atraumatic, normocephalic. Face symmetric Eyes: EOMI, sclerae icteric ENT: Mucous membranes moist. Oral mucosal yellowing. Trachea midline. Thoracic: No visible chest wall deformities. Normal breath sounds b/l, no wheezing or crackles Cardio: Normal S1 and S2, regular rate and rhythm Abdomen: Soft, nontender, nondistended. Extremities: Warm, well perfused. DP pulses 2+ b/l. No clubbing, cyanosis. Mild nonpitting edema b/l legs Skin: superficial skin tears on hands Neuro: Awake, oriented to person. Poor memory, concentration, attention. Hard of hearing. Speech somewhat difficult to understand. Strength 5/5 in b/l UE and LE. Unable to assess for asterixis Internal Med - H&P Results - Labs CBC & Chem 7: 06/28/19 03:24 06/28/19 03:24 Labs: Short CBC 06/28/19 Range/Units 03:24 WBC 8.9 (4.3-11.1) K/mcL Hgb 12.6 L (12.9-16.9) g/dL Hct 35.8 L (37.5-50.1) % Plt Count 55 L (140-400) K/mcL Neutrophils # 8.4 (1.6-8.9) K/mcL BMP 06/28/19 03:24 Sodium 140 Potassium 3.1 L Chloride 107 Carbon Dioxide 20 L BUN 15 Creatinine 0.97 Glucose 109 H Calcium 8.9 Cardiac Enzymes 06/28/19 Range/Units 03:24 Troponin I 0.03 (< 0.04) ng/mL Liver Function 06/28/19 Range/Units 03:24 Total Bilirubin 3.2 H (0.3-1.0) mg/dL Direct Bilirubin 1.0 H (0.0-0.2) mg/dL AST 75 H (13-39) Units/L ALT 41 (7-52) Units/L Alkaline Phosphatase 114 H (34-104) Units/L Albumin 3.0 L (3.5-5.7) g/dL Urine 06/28/19 Range/Units 02:47 Urine Color Brown (Yellow) Urine Clarity Cloudy A (Clear) Urine pH 6.0 (5.0-8.0) pH Units Ur Specific [place] >= 1.030 H (1.010-1.025) Urine Protein >=300 H (Neg-Trace) mg/dL Urine Glucose (UA) 100 H (Normal) mg/dL - Impressions ITS Impressions Chest X-Ray 06/28/19 02:21 IMPRESSION: Chronic findings in the chest without acute airspace disease identified. D/ / Bryan Ferrer / Bryan Ferrer Interpreting Provider: Bryan Ferrer Head CT 06/28/19 02:21 IMPRESSION: Unchanged appearance of the brain without acute CT abnormality identified. D/ / Bryan Ferrer / Bryan Ferrer Interpreting Provider: Bryan Ferrer Abdomen/Pelvis CT 06/28/19 02:22 IMPRESSION: Large amount of rectal stool with mild wall thickening. Cirrhotic liver with splenomegaly and portal hypertension. Bleeding varices not excluded on the basis of this CT. 3.0 cm abdominal aortic aneurysm. 3 year follow-up is advised to document stability. See below. Osseous findings suggestive of ankylosing spondylitis. RECOMMENDATIONS: Recommend follow-up every 3 years. Reference: J Am Kris Radiol 2013;10:789-794. D/ / Wojciech Zabala / Wojciech Zabala Interpreting Provider: Wojciech Zabala - Summary of Assessment and Plan Summary of Assessment and Plan: Celestine Puente is a 74 M w hx dementia, decompensated cirrhosis, hemorrhagic CVA, DDD s/p cervical fusion, HTN, GERD, RA, Ank Spondylosis, who p/w hematemesis, confusion, fever, tachycardia, most concerning for potential variceal bleed. Hematemesis: hx cirrhosis w increased portal pressure most concerning for varice al bleed, hx GERD and could have PUD. No recurrent episodes, and Hb and vitals currently stable - GenSurg consulted - T&S, transfuse for hypotension or any sign of active/repeat bleeding - trend Hb - PPI gtt - Octreotide gtt - empiric rocephin for sbp ppx Lactic acidosis: lactate 5 on admit, given 2L - trend lactate - fluid bolus prn Acute metabolic encephalopathy: likely 2/2 GIB and lactic acidosis. Could also be hepatic encephalopathy given possible GI bleed. CT head unremarkable. - manage potential bleed and acidosis as above - precautions - hold on empiric lactulose for now Hypokalemia: replace and monitor Cirrhosis: unknown etiology, decompensated (w ascites, splenomegaly, thrombocytopenia) - daily MELD labs (bmp, LFT, inr) - HE: no hx - EV: never had EGD. Will need EGD for variceal screening - Diuretics: no ascites, no need for diuretics at present - Paracentesis: no ascites - RUQ ultrasound with limited doppler PPx: SCDs Tele: yes Activity: up w assist FEN: NPO w meds, no MIVF Lines: PIVx2 Consults: GenSurg Code: Full Dispo: obs for hematemesis c/b lactic acidosis, anticipate 2-3 days, will be homegoing - Stroke Is the patient on any antithrombotics?: No Are there any contradictions to antithrombotics?: Yes Contraindication Antithromb by Day Two: Not Indicated - Due to Bleeding Disorder or Risk of Bleeding
[2019-06-28] MEDS ORDERED: Carbidopa/Levodopa 25/100 TABLET PO SCH (09:00)
[2019-06-28] MEDS ORDERED: Potassium Chloride Elixir 20 MEQ/15 ML UDC PO SCH (09:00)
[2019-06-28] MEDS ORDERED: 0.9 % Sodium Chloride 1,000 ML IVC ONE ×2 (09:22→13:30)
[2019-06-28] MEDS ORDERED: 0.9 % Sodium Chloride 1,000 ML ONE (09:23)
[2019-06-28] MEDS: cefTRIAXone 1,000 MG in Water for inj. (sterile) 10 ML IVP SCH (09:28)
[2019-06-28] MEDS ORDERED: *HR* FentaNYL (PF) 100 MCG/2 ML VIAL ONE (10:00)
[2019-06-28] MEDS ORDERED: *HR* Midazolam HCl 5 MG/5 ML VIAL IVP ONE (10:01)
[2019-06-28] MEDS ORDERED: Lidocaine -MPF 2% 2 ML VIAL ONE (10:21)
[2019-06-28] MEDS ORDERED: *HR* Propofol 200 MG/20 ML VIAL IVP ONE (10:21)
--- NOTE | 2019-06-28 10:51 | Anesthesia Evaluation PreOp ---
Date of Encounter: 06/28/19 Time of Encounter: 10:49 - Past History Planned Operation: EGD Cardiac History: HTN, Hyperlipidemia DATA ANALYSIS ASSISTANT History: CVA, Other (parkinson's) Other Medical History: Hepatic (cirrhosis), GERD, Other (urinary incontinence, RA, ankylosing spondylosis, hematemesis) Anesthesia History: No Prior Anesthetic Complications, Past Anesthesia (katie, cervical plates, knee surgery) Alcohol Use: none (Last used 30 years ago) Drug use: none Medications and Allergies Calcium Carbonate 650 mg PO DAILY 07/28/16 [History] DiphenhydraMINE [Benadryl] 2 cap PO HS 07/28/16 [History] Ergocalciferol (VITAMIN D2) [Vitamin D] 1,200 unit PO DAILY 07/28/16 [History] Omeprazole [PriLOSEC] 20 mg PO DAILY 07/28/16 [History] Polyethylene Glycol 3350 [MiraLAX] 17 gm PO DAILY 07/28/16 [History] Cyclobenzaprine HCl 5 mg PO DAILY 04/21/17 [History] Aspirin Enteric Coated [Aspirin EC] 81 mg PO DAILY #30 tablet. 04/29/19 [Rx] Carbidopa/Levodopa 25/100 [Sinemet 25/100] 1 each PO TID #90 tablet 04/29/19 [R x] Metoprolol [Lopressor] 25 mg PO BID tablet 04/29/19 [Rx] Tamsulosin [Flomax] 0.4 mg PO DAILY #30 capsule 04/29/19 [Rx] amLODIPine [Norvasc] 10 mg PO DAILY tablet 04/29/19 [Rx] Albuterol Neb 90 IH PRN 05/19/19 [History] Cyanocobalamin (B-12) 1,000 mg PO DAILY 05/19/19 [History] GuaiFENesin Liq 100 mg PO TID 05/19/19 [History] Ondansetron 4 mg PO DAILY PRN 05/19/19 [History] OxyCODONE Immed Rel [Roxicodone 15 MG] 30 mg PO Q6HR PRN 05/19/19 [History] Potassium Chloride 10 meq PO DAILY 05/19/19 [History] FentaNYL PATCH [Duragesic] 12 mcg TD Q48H 06/28/19 [History] Allergy/AdvReac Type Severity Reaction Status Date / Time diazepam [From Valium] Allergy Unknown Unknown Verified 04/25/19 22:38 latex Allergy Unknown Unknown Verified 04/25/19 22:38 methadone [Methadone] Allergy Unknown Unknown Verified 04/25/19 22:38 morphine Allergy Unknown Itching Verified 04/25/19 22:38 - Meds/Allergy Pre-op Review Medications Reviewed: Yes Allergies Reviewed: Yes Beta Blockers on Current Med List: Yes (metoprolol) If Beta Blockers taken, Date/Time (Last Dose taken): unable to assess Anesthesia Results - Labs 06/28/19 03:24 06/28/19 03:24 - Imaging EKG: report reviewed Additional studies: 04/2019 Limited Echo LVEF 60%. Normal right ventricular structure and function. No evidence of PFO with agitated saline contrast. Anesthesia Exam Vital Signs/O2 Sat/Glucose, Most Recent Temp Pulse Resp BP Pulse Ox 98.5 F 78 18 122/63 96 06/28/19 10:31 06/28/19 10:31 06/28/19 10:31 06/28/19 10:31 06/28/19 10:31 Blood Glucose* 101 Weight: 88 kg NPO (# of Hours): > 8 hr - HEENT Pupil (Motor): Pupils equal, EOMI Mallampati: III Oral Opening: Greater than 3 - DATA ANALYSIS ASSISTANT LOC: Oriented - Cardiac Rhythm: Regular Murmur: None - Pulmonary Breath Sounds: bilateral Clear Respiratory Effort: Symmetrical Anesthesia Assess/Plan ASA Score: 4 Level of consciousness: Cooperative, Oriented Anesthetic Plan: MAC Monitoring Plan: Standard Monitors Recovery Plan: PACU
[2019-06-28] MEDS ORDERED: Tetracaine/Benzocaine/Butamben 1 SPRAY AEROSOL MM ONE (11:19)
[2019-06-28] MEDS ORDERED: Simethicone 40 MG/0.6 ML MLS IR ONE (11:19)
[2019-06-28] MEDS: Acetaminophen 325 MG TABLET PO SCH ×3 (12:30→20:53)
--- NOTE | 2019-06-28 13:29 | Anesthesia Evaluation Post Op ---
Date of Encounter: 06/28/19 Time of Encounter: 13:28 - Vital Signs Vital Signs: Vital Signs/O2 Sat/Glucose, Most Recent Temp Pulse Resp BP Pulse Ox 98.2 F 71 18 119/70 96 06/28/19 12:13 06/28/19 12:13 06/28/19 12:13 06/28/19 12:13 06/28/19 12:13 Blood Glucose* 101 - Lungs Lungs: Clear Ascult./Percussion - Airway Airway: Non-obstructed - Cardiovascular Regular Rate - Mental Status Mental Status: Alert & Oriented, Answers Appropriately, Baseline Status - Pain Pain Scale: 0 - Nausea Vomiting Nausea Vomiting: Not Present - Hydration Hydration: NPO - Discharge PostOp Status: Transfer Patient to floor
[2019-06-28] MEDS ORDERED: *HR* OxyCODONE/APAP 5/325 TABLET PO ONE (19:56)
[2019-06-29] MEDS: Acetaminophen 325 MG TABLET PO SCH ×7 (00:27→23:59)
[2019-06-29] MEDS: 0.9 % Sodium Chloride 1,000 ML IVC SCH ×2 (00:31→04:39)
[2019-06-29] MEDS: Pantoprazole 40 MG in 0.9 % Sodium Chloride Mini Bag 100 ML IVC SCH ×3 (02:10→04:39)
[2019-06-29 04:01] LABS: Hematocrit 29.9 % (37.5-50.1); Hemoglobin 10.3 g/dL (12.9-16.9); Immature Platelets 2.2 % (1.1-6.1); Mean Corpuscular HGB Conc 34.4 g/dL (31.6-35.5); Mean Corpuscular Hemoglobin 33.2 pg (28.0-33.3); Mean Corpuscular Volume 96.5 fL (83.0-100.0); Mean Platelet Volume 10.1 fL (9.4-12.4); Red Blood Count 3.1 M/mcL (4.19-5.50); Red Cell Distribution Width 14.6 % (11.5-14.5); White Blood Count 9.3 K/mcL (4.3-11.1)
[2019-06-29 04:13] LABS: INR 1.8; Prothrombin Time 20.1 Seconds (9.4-12.1)
[2019-06-29 04:21] LABS: Alanine Aminotransferase 45 Units/L (7-52); Albumin 2.5 g/dL (3.5-5.7); Albumin/Globulin Ratio 0.9 (1.1-2.2); Alkaline Phosphatase 80 Units/L (34-104); Aspartate Amino Transferase 67 Units/L (13-39); BUN/Creatinine Ratio 20 (6-26); Blood Urea Nitrogen 17 mg/dL (8-23); Calcium 8.1 mg/dL (8.6-10.3); Carbon Dioxide 21 mEq/L (23-29); Chloride 112 mEq/L (98-107); Globulin 2.9 g/dL (2.4-3.5); Glucose 84 mg/dL (70-105); Magnesium 1.5 mg/dL (1.6-2.6); Osmolality,Calculated 291 (280-300); Potassium 3.7 mEq/L (3.5-5.1); Sodium 140 mEq/L (136-145); Total Protein 5.4 g/dL (6.4-8.9); eGFR For African Americans > 60 (> 60); eGFR For Non-African Americans > 60 (> 60)
[2019-06-29] MEDS: cefTRIAXone 1,000 MG in Water for inj. (sterile) 10 ML IVP SCH (08:45)
--- NOTE | 2019-06-29 12:12 | Internal Med Progress Note ---
Hospitalist Progress Note - Encounter Date of Encounter: 06/29/19 Time of Encounter: 11:30 - Subjective Interval History: Patient was seen at bedside. No episodes of blood in the stools or blood in vomitus. Denies any acute complaints today. Had a bowel movement today but does mention there was no blood. Endoscopy was done yesterday. No source of bl eeding was identified and no interventions were done. Hemoglobin dropped from 12.6 to 10.3. - Exam Vitals: Temp Pulse Resp BP Pulse Ox 97.6 F 62 18 175/86 95 06/29/19 11:21 06/29/19 11:21 06/29/19 11:21 06/29/19 11:21 06/29/19 11:21 Exam: General: NAD, moderate eye contact, chronically ill appearing. Head: Atraumatic, normocephalic. Face symmetric Eyes: EOMI, sclerae icteric ENT: Mucous membranes moist. Oral mucosal yellowing. Trachea midline. Thoracic: No visible chest wall deformities. Normal breath sounds b/l, no wheezing or crackles Cardio: Normal S1 and S2, regular rate and rhythm Abdomen: Soft, nontender, nondistended. Extremities: Warm, well perfused. DP pulses 2+ b/l. No clubbing, cyanosis. Mild nonpitting edema b/l legs Skin: superficial skin tears on hands Neuro: Awake, oriented to person. Poor memory, concentration, attention. Hard of hearing. Speech somewhat difficult to understand. Strength 5/5 in b/l UE and LE. - Assessment and Plan (1) Hematemesis Current Visit: Yes Status: Acute Assessment and Plan: There were concerns for variceal bleed Considering history of cirrhosis. Endoscopy was done yesterday which showed normal duodenum, normal esophagus, acute/chronic gastritis. No samples were collected. No interventions were done. Hemoglobin dropped from 12.6-10.3. No further episodes of hematemesis or hematochezia. Currently on ceftriaxone for SBP prophylaxis. Repeat the CBC to monitor Regular diet was ordered by surgery which will continue. (2) Cirrhosis Current Visit: Yes Status: Acute Assessment and Plan: Questionable cirrhosis on CT scan, Etiology unclear. Sems decompensated with ascites, splenomegaly, thrombus cytopenia. Ultrasonography did show nodular liver. Endoscopy did not show any varices. Patient will need outpatient follow-up with production aide. (3) Acute metabolic encephalopathy Current Visit: Yes Status: Acute Assessment and Plan: Etiology unclear. Seems to be related to acute GI bleed. Resolving. Continue to monitor. No need for lactulose. (4) Lactic acidosis Current Visit: Yes Status: Acute Assessment and Plan: Resolving. Came in the lactic acid of 5. Most recent was 3.2 No signs of instability at this point. (5) DVT prophylaxis Current Visit: Yes Status: Acute Assessment and Plan: SCD (6) Hypokalemia Current Visit: Yes Status: Acute Assessment and Plan: Resolved Potassium of 3.7 today (7) HTN (hypertension) Current Visit: No Status: Acute Assessment and Plan: BP on the higher side Resume home meds - Summary of Assessment and Plan Summary of Assessment and Plan: Anticipate dsicharge tomorrrow. ONce hgb remaisn stable - Time Spent with Patient Total time spent is greater than 50% in coordination of care (as documented) at patient's floor/unit and/or counseling patient: Internal Medicine: Result - Labs CBC & Chem 7: 06/29/19 01:30 06/29/19 01:30 Labs: Short CBC 06/29/19 Range/Units 01:30 WBC 9.3 (4.3-11.1) K/mcL Hgb 10.3 L D (12.9-16.9) g/dL Hct 29.9 L (37.5-50.1) % Plt Count 42 L (140-400) K/mcL BMP 06/29/19 01:30 Sodium 140 Potassium 3.7 Chloride 112 H Carbon Dioxide 21 L BUN 17 Creatinine 0.83 Glucose 84 Calcium 8.1 L Liver Function 06/29/19 Range/Units 01:30 Total Bilirubin 2.0 H (0.3-1.0) mg/dL AST 67 H (13-39) Units/L ALT 45 (7-52) Units/L Alkaline Phosphatase 80 (34-104) Units/L Albumin 2.5 L (3.5-5.7) g/dL - ABG Interpretation ABG results: PT/INR, D-dimer PT 20.1 Seconds (9.4-12.1) H 06/29/19 01:30 - Impressions Impressions Abdomen/Pelvis CT 06/28/19 02:22 IMPRESSION: Large amount of rectal stool with mild wall thickening. Cirrhotic liver with splenomegaly and portal hypertension. Bleeding varices not excluded on the basis of this CT. 3.0 cm abdominal aortic aneurysm. 3 year follow-up is advised to document stability. See below. Osseous findings suggestive of ankylosing spondylitis. RECOMMENDATIONS: Recommend follow-up every 3 years. Reference: J Am Kris Radiol 2013;10:789-794. D/ / 06/28/2019 08:05:17 Wojciech Zabala / lino Interpreting Provider: Wojciech Zabala Liver Ultrasound 06/28/19 17:00 IMPRESSION: Prior cholecystectomy. Findings suggestive of cirrhosis. D/ / Franky Alarcon MD / Franky Alarcon MD Interpreting Provider: Franky Alarcon MD - Stroke Is the patient on any antithrombotics?: Yes Contraindication Antithromb by Day Two: Not Indicated - Due to Bleeding Disorder or Risk of Bleeding Consult Discharge Plan - Plan [facility]errals: [facility] [Primary Care Provider] - (1) Hematemesis Qualifiers: Nausea presence: unspecified Qualified Code(s): K92.0 - Hematemesis (2) Cirrhosis Qualifiers: Hepatic cirrhosis type: unspecified hepatic cirrhosis (7) HTN (hypertension) Qualifiers: Hypertension type: essential hypertension Qualified Code(s): I10 - Essential (primary) hypertension
[2019-06-29] MEDS ORDERED: *HR* FentaNYL PATCH 12 MCG PATCH TD SCH (14:00)
[2019-06-29 14:20] LABS: Basophils % 0.3 %; Eosinophils # 0.1 K/mcL (0.0-0.6); Eosinophils % 1.9 %; Hematocrit 32.9 % (37.5-50.1); Hemoglobin 11.5 g/dL (12.9-16.9); Immature Granulocytes % 0.5 % (0-4); Immature Platelets 1.8 % (1.1-6.1); Lymphocytes # 0.8 K/mcL (0.6-4.6); Lymphocytes % 11.2 %; Mean Corpuscular Hemoglobin 33.3 pg (28.0-33.3); Mean Corpuscular Volume 95.4 fL (83.0-100.0); Monocytes # 0.4 K/mcL (0.0-1.3); Monocytes % 4.8 %; Red Blood Count 3.45 M/mcL (4.19-5.50); Red Cell Distribution Width 14.3 % (11.5-14.5); Segmented Neutrophils % 81.3 %; White Blood Count 7.3 K/mcL (4.3-11.1)
[2019-06-29 14:22] LABS: Neutrophils # 5.9 K/mcL (1.6-8.9); Platelet Count 44 K/mcL (140-400)
[2019-06-29] MEDS: *HR* OxyCODONE Immed Rel 15 MG TABLET PO PRN ×2 (15:57→20:50)
[2019-06-29] MEDS: Pantoprazole 40 MG VIAL IVP SCH (17:02)
[2019-06-29] MEDS ORDERED: Melatonin 3 MG TABLET PO SCH (21:00)
[2019-06-30 04:06] LABS: Mean Corpuscular HGB Conc 35.2 g/dL (31.6-35.5); Mean Corpuscular Hemoglobin 33.1 pg (28.0-33.3)
[2019-06-30 04:08] LABS: Basophils % 0.4 %; Eosinophils # 0.3 K/mcL (0.0-0.6); Eosinophils % 3.8 %; Hematocrit 33.5 % (37.5-50.1); Hemoglobin 11.8 g/dL (12.9-16.9); Immature Granulocytes % 0.3 % (0-4); Immature Platelets 2.2 % (1.1-6.1); Lymphocytes # 1.4 K/mcL (0.6-4.6); Lymphocytes % 20.7 %; Mean Corpuscular Volume 94.1 fL (83.0-100.0); Mean Platelet Volume 9.8 fL (9.4-12.4); Monocytes # 0.3 K/mcL (0.0-1.3); Monocytes % 4.3 %; Neutrophils # 4.9 K/mcL (1.6-8.9); Red Blood Count 3.56 M/mcL (4.19-5.50); Red Cell Distribution Width 13.7 % (11.5-14.5); Segmented Neutrophils % 70.5 %; White Blood Count 6.9 K/mcL (4.3-11.1)
[2019-06-30 04:09] LABS: Platelet Count 55 K/mcL (140-400)
[2019-06-30 04:15] LABS: INR 1.4; Prothrombin Time 15.8 Seconds (9.4-12.1)
[2019-06-30 04:27] LABS: Alanine Aminotransferase 44 Units/L (7-52); Albumin 2.8 g/dL (3.5-5.7); Albumin/Globulin Ratio 0.8 (1.1-2.2); Alkaline Phosphatase 89 Units/L (34-104); Aspartate Amino Transferase 57 Units/L (13-39); BUN/Creatinine Ratio 15 (6-26); Bilirubin,Total 1.8 mg/dL (0.3-1.0); Blood Urea Nitrogen 10 mg/dL (8-23); Carbon Dioxide 24 mEq/L (23-29); Chloride 105 mEq/L (98-107); Globulin 3.7 g/dL (2.4-3.5); Glucose 103 mg/dL (70-105); Magnesium 1.6 mg/dL (1.6-2.6); Osmolality,Calculated 281 (280-300); Potassium 3.4 mEq/L (3.5-5.1); Sodium 136 mEq/L (136-145); Total Protein 6.5 g/dL (6.4-8.9); eGFR For African Americans > 60 (> 60); eGFR For Non-African Americans > 60 (> 60)
[2019-06-30] MEDS: Acetaminophen 325 MG TABLET PO SCH ×3 (05:00→12:07)
[2019-06-30] MEDS: Pantoprazole 40 MG VIAL IVP SCH (05:00)
[2019-06-30] MEDS ORDERED: Eucerin Cream 57 GM TUBE TP SCH (09:00)
[2019-06-30] MEDS ORDERED: amLODIPine 5 MG TABLET PO SCH (09:00)
[2019-06-30] MEDS: cefTRIAXone 1,000 MG in Water for inj. (sterile) 10 ML IVP SCH (09:12)
[2019-06-30] MEDS: *HR* OxyCODONE Immed Rel 15 MG TABLET PO PRN (09:17)
--- NOTE | 2019-06-30 10:56 | Discharge Summary ---
- NOTES TO OUTPATIENT PROVIDER Notes to Outpatient Provider: PResented wiht the upper GI bleed, endoscpy did not show any active bleeding or stigmata of bleeding. His hgb remained stable. COncerns for the UTI considering hematuria. WIll be discharged on 3 more days of ciprofloxacin. Orders not resulted at time of discharge: Pending orders 06/28/19 05:06 Culture,Blood [BC] Stat Date of Encounter: 06/30/19 Time of Encounter: 08:55 - Discharge Diagnosis (1) Hematemesis Priority: Primary Status: Acute Qualifiers: Nausea presence: unspecified Qualified Code(s): K92.0 - Hematemesis (2) Cirrhosis Priority: Secondary Status: Acute Qualifiers: Hepatic cirrhosis type: unspecified hepatic cirrhosis Qualified Code(s): K74.60 - Unspecified cirrhosis of liver (3) Acute metabolic encephalopathy Priority: Secondary Status: Acute (4) Lactic acidosis Priority: Secondary Status: Acute (5) DVT prophylaxis Priority: Secondary Status: Acute (6) Hypokalemia Priority: Secondary Status: Acute (7) HTN (hypertension) Priority: Secondary Status: Acute Qualifiers: Hypertension type: essential hypertension Qualified Code(s): I10 - Essential (primary) hypertension Hospital course: Mr. Puente is a 74 year old male with a past medical history significant for decompensated cirrhosis, hemorrhagic CVA, hypertension, GERD, RA, presented to the hospital because of the abdominal pain, nausea and hematemesis. also mentioned that the patient also had hematuria. Patient was also confused before the presentation. Patient was started on Protonix drip, octreotide drip, surgery was consulted for urgent endoscopy. Endoscopy showed normal esophagus, normal duodenum, diffuse moderate inflammation characterized by congestion, erythema, friability and granularity was found in the entire examined stomach. Mild gastropathy without any varices. Patient was kept in the hospital for conservative management. Diet was advanced. Patient tolerated the diet well. No further bleeding episodes. No melena or bleeding per rectum. Patient hemoglobin also remained stable over the stay in the hospital. Patient was started on ceftriaxone because of the concern of the variceal bleed with the prophylaxis of SBP. Patient usually was positive. Urine culture have been negative. Considering hematuria, artery mental status, patient was continued on ceftriaxone. He will be discharged on ciprofloxacin for 3 more days to complete a course for UTI. Discussed the plan of care with the patient . SHe is agreaable to the plan. Off note, patient had a history of cirrhosis and the and establish care with a doctor in [place]. - Time Spent with Patient Total time spent providing and/or coordinating discharge services: 35 minutes Time spent: Greater than 30 minutes - Discharge Medications Prescriptions: New Ciprofloxacin [Cipro] 500 mg PO BID 3 Days #6 tablet Continued Polyethylene Glycol 3350 [MiraLAX] 17 gm PO DAILY Omeprazole [PriLOSEC] 20 mg PO DAILY Calcium Carbonate 650 mg PO DAILY Ergocalciferol (VITAMIN D2) [Vitamin D] 1,200 unit PO DAILY Cyclobenzaprine HCl 5 mg PO DAILY Aspirin Enteric Coated [Aspirin EC] 81 mg PO DAILY #30 tablet. Tamsulosin [Flomax] 0.4 mg PO DAILY #30 capsule Metoprolol [Lopressor] 25 mg PO BID tablet amLODIPine [Norvasc] 10 mg PO DAILY tablet Ondansetron HCl [Zofran] 4 mg PO Q8H PRN PRN Reason: Nausea guaiFENesin [Cough Syrup] 100 mg PO Q12H PRN PRN Reason: Congestion Cyanocobalamin (Vitamin B-12) [Vitamin B-12] 1,000 mcg PO DAILY FentaNYL PATCH [Duragesic] 12 mcg TD Q48H Albuterol Sulfate [Proair Hfa] 2 puff IH Q4-6H PRN PRN Reason: Shortness Of Breath Ammonium Lactate [Cathy-Hydrolac] 1 appl TP DAILY DiphenhydraMINE [Benadryl] 25 mg PO HS Lidocaine Patch [Lidoderm 5% patch] 1 each TP DAILY PRN PRN Reason: Pain Melatonin 3 mg PO HS Mineral Oil/Petrolatum,White [Eucerin Creme] 120 gm TP DAILY Oxycodone HCl [Roxybond] 15 mg PO Q4H PRN PRN Reason: Pain Potassium Chloride [K-Tab ER] 10 meq PO QPM InFLIXimab [Remicade] 0 mg IVPB Q8W Home Medications: Calcium Carbonate 650 mg PO DAILY 07/28/16 [History] Ergocalciferol (VITAMIN D2) [Vitamin D] 1,200 unit PO DAILY 07/28/16 [History] Omeprazole [PriLOSEC] 20 mg PO DAILY 07/28/16 [History] Polyethylene Glycol 3350 [MiraLAX] 17 gm PO DAILY 10/03/16 [History] Cyclobenzaprine HCl 5 mg PO DAILY 04/21/17 [History] Aspirin Enteric Coated [Aspirin EC] 81 mg PO DAILY #30 tablet. 04/29/19 [Rx] Metoprolol [Lopressor] 25 mg PO BID tablet 04/29/19 [Rx] Tamsulosin [Flomax] 0.4 mg PO DAILY #30 capsule 04/29/19 [Rx] amLODIPine [Norvasc] 10 mg PO DAILY tablet 04/29/19 [Rx] Cyanocobalamin (Vitamin B-12) [Vitamin B-12] 1,000 mcg PO DAILY 05/19/19 [History] Ondansetron HCl [Zofran] 4 mg PO Q8H PRN 05/19/19 [History] guaiFENesin [Cough Syrup] 100 mg PO Q12H PRN 05/19/19 [History] Albuterol Sulfate [Proair Hfa] 2 puff IH Q4-6H PRN 06/28/19 [History] Ammonium Lactate [Cathy-Hydrolac] 1 appl TP DAILY 06/28/19 [History] DiphenhydraMINE [Benadryl] 25 mg PO HS 06/28/19 [History] FentaNYL PATCH [Duragesic] 12 mcg TD Q48H 06/28/19 [History] InFLIXimab [Remicade] 0 mg IVPB Q8W 06/28/19 [History] Lidocaine Patch [Lidoderm 5% patch] 1 each TP DAILY PRN 06/28/19 [History] Melatonin 3 mg PO HS 06/28/19 [History] Mineral Oil/Petrolatum,White [Eucerin Creme] 120 gm TP DAILY 06/28/19 [History] Oxycodone HCl [Roxybond] 15 mg PO Q4H PRN 06/28/19 [History] Potassium Chloride [K-Tab ER] 10 meq PO QPM 06/28/19 [History] Ciprofloxacin [Cipro] 500 mg PO BID 3 Days #6 tablet 06/30/19 [Rx] Allergies/Adverse Reactions: Allergy/AdvReac Type Severity Reaction Status Date / Time diazepam [From Valium] Allergy Unknown Unknown Verified 06/28/19 17:10 latex Allergy Unknown Unknown Verified 06/28/19 17:10 methadone [Methadone] Allergy Unknown Unknown Verified 06/28/19 17:10 morphine Allergy Unknown Itching Verified 06/28/19 17:10 Date of admission: 06/28/19 06:31 [facility] physician: [facility] Consults: 06/28/19 05:37 Consult to Surgery [CONS] Stat Consulting Provider: Acute Care Surgery Reason for Consult: Variceal bleed Time Notified: 05:38 Call Completed: Yes 06/28/19 08:59 Consult to Room Worker [CONS] Routine Reason for SW Consult: GI bleed, hx cirrhosis, frail and dementia Consult to Wound Care [CONS] Routine Reason for Consult: skin tears Call Completed: No - Constitutional Vitals: Temp Pulse Resp BP Pulse Ox 97.9 F 65 19 144/75 96 06/30/19 07:32 06/30/19 07:32 06/30/19 07:32 06/30/19 07:32 06/30/19 07:32 Exam: General: NAD, moderate eye contact, chronically ill appearing. Head: Atraumatic, normocephalic. Face symmetric Eyes: EOMI, sclerae icteric ENT: Mucous membranes moist. Oral mucosal yellowing. Trachea midline. Thoracic: No visible chest wall deformities. Normal breath sounds b/l, no wheezing or crackles Cardio: Normal S1 and S2, regular rate and rhythm Abdomen: Soft, nontender, nondistended. Extremities: Warm, well perfused. DP pulses 2+ b/l. No clubbing, cyanosis. Mild nonpitting edema b/l legs Skin: superficial skin tears on hands Neuro: Awake, oriented to person. Poor memory, concentration, attention. Hard of hearing. Speech somewhat difficult to understand. Strength 5/5 in b/l UE and LE. - Patient Status Disposition: Home, Self-Care Condition: Critical Overall status at discharge: patient is progressing back to baseline - Discharge Instructions Follow [facility] With: [facility] [Primary Care Provider] - - Diet and Activity Activity: increase activity as tolerated Diet: advance to your usual diet - Stroke Is the patient on any antithrombotics?: No Are there any contradictions to antithrombotics?: Yes Contraindication Antithromb by Day Two: Not Indicated - Due to Bleeding Disorder or Risk of Bleeding
--- NOTE | 2019-06-30 11:24 | Electrocardiograph Report ---
[facility] Test Date: 2019-06-28 Pat Name: Celestine Puente Department: EXAM3 Room: 2N12 Gender: M Surgical Coder: : 1945 Requested By: Junito Mckeon Order Number: [id number] Reading MD: Clyde Nelson Measurements Intervals [place] Rate: 104 P: 106 IN: 175 QRS: 231 QRSD: 103 T: 129 QT: 354 QTc: 466 Interpretive Statements Sinus tachycardia Ventricular premature complex Probable lateral infarct, age indeterminate Electronically Signed On 06-30-2019 11:23:14 EDT by Clyde Nelson
[2019-06-30 11:40] VITALS: BP 157/90
== END 2019-06-30 15:49 | disposition home or self-care (01) ==
LOC: 2NNU 02:12 → EMEROOARM 02:12 → SUATTDRO 06:31 → 2NNU 07:41
PROVIDERS: ADMIT Internal Medicine; ATTEND Internal Medicine